=== PATIENT | female | born 1975 | race African-American/Black ===

== ENCOUNTER 2016-12-03 03:10 | Inpatient (IN) | payer BC ==
[~2016-12-03] VITALS: Ht 160 cm; Wt 75.3 kg
[~2016-12-03 03:10] MED LIST: BUTA1CAP29 PO
[2016-12-03] MEDS ORDERED: ONDANSETRON PF 4 MG/2 ML VIAL. IV PRN (04:30)
[2016-12-03] MEDS ORDERED: MORPHINE SULFATE 2 MG/ML DISP.SYRIN. IV PRN (04:30)
[2016-12-03] MEDS ORDERED: ACETAMINOPHEN 325 MG TABLET. PO PRN (04:30)
[2016-12-03 04:45] VITALS: BP 124/82
[2016-12-03] MEDS ORDERED: METO50TA2 PO (04:51)
[2016-12-03] MEDS ORDERED: OXYC-323 PO (04:51)
[2016-12-03] MEDS ORDERED: PNV1TABL25 PO (04:51)
[2016-12-03] MEDS ORDERED: OMEP40CA5 PO (04:51)
[2016-12-03] MEDS ORDERED: SUMA50TA3 PO (04:51)
[2016-12-03 07:05] LABS: BASO % 1 % (0-3); EOS % 2 % (0-3); HEMOGLOBIN 11.5 g/dL (12.0-15.5); LYMPH % 43 % (24-48); MEAN CORPUSCULAR HEMOGLOBIN 26 pg (25-35); MEAN CORPUSCULAR HGB CONC 32 g/dL (31-37); MEAN CORPUSCULAR VOLUME 82 fL (79-100); MONO % 8 % (0-9); NEUT % 46 % (31-73); PLATELET COUNT 205 x10^3/uL (140-400); RED BLOOD COUNT 4.41 x10^6/uL (3.50-5.40); WHITE BLOOD COUNT 4.6 x10^3/uL (4.0-11.0)
[2016-12-03 07:20] LABS: INR 1.1 (0.8-1.1); PROTHROMBIN TIME PATIENT 13.8 SEC (11.7-14.0)
[2016-12-03 07:25] LABS: ALBUMIN 3.3 g/dL (3.4-5.0); ALBUMIN/GLOBULIN RATIO 0.8 (1.0-1.7); CALCIUM 8.8 mg/dL (8.5-10.1); GFR 74.3; POTASSIUM 3.8 mmol/L (3.5-5.1); TOTAL BILIRUBIN 0.6 mg/dL (0.2-1.0); TOTAL PROTEIN 7.3 g/dL (6.4-8.2)
[2016-12-03 07:36] VITALS: BP 137/93
[2016-12-03 10:59] VITALS: BP 128/90
[2016-12-03] MEDS ORDERED: oxyCODONE/APAP 5/325 1 TAB TABLET PO PRN (11:45)
[2016-12-03] MEDS: PANTOPRAZOLE 40 MG TABLET.DR. PO SCH (12:10)
[2016-12-03] MEDS ORDERED: GADOBUTROL 7.5 MMOL/7.5 ML VIAL IV ONE (12:30)
[2016-12-03] MEDS ORDERED: hydrALAZINE 20 MG/ML VIAL. IVP PRN (13:15)
[2016-12-03] MEDS ORDERED: IBUPROFEN 800 MG TABLET. PO PRN (13:15)
--- NOTE | 2016-12-03 13:21 | PDOC1 ---
History and Physical Date of Admission Date of Admission 12/03/16 Identification/Chief Complaint Chief Complaint headache Problems: Source Source: Chart review, Patient History of Present Illness History of Present Illness 41yoF, had C section 3 weeks ago, was sent from [facility] for headache. She has had migraine for a long time, currently not taking sumatriptan since and . she started to have headache since yesterday, on the top of head, radiating to occipital, with nausea, sob, constant, 10/10. She isnot sure if noise and light bothers her. Her usual migraine usually is left side and pulsating. she went to [facility] Yesterday, CT head neg. sent here for MRI. now slightly better. no fever, chills, cough, vomiting , neurologic deficit. Past Medical History Cardiovascular: HTN Past Surgical History Past Surgical History: Family History Family History: Hypertension Social History Smoke: No ALCOHOL: none Drugs: None Current Medications Current Medications Current Medications Medications (Trade) Dose Ordered Sig/Vernell Start Time Stop Time Status Last Admin Dose Admin Acetaminophen (Tylenol) 650 mg PRN Q6HRS PRN 12/03/16 04:30 12/03/16 05:12 650 MG Gadobutrol (Gadavist) 7.5 mmol 1X ONCE 12/03/16 12:30 12/03/16 12:31 DC 12/03/16 12:43 7.5 MMOL Metoprolol Tartrate (Lopressor) 50 mg HS 12/03/16 21:00 Morphine Sulfate 2 mg PRN Q4HRS PRN 12/03/16 04:30 Ondansetron HCl (Zofran) 4 mg PRN Q6HRS PRN 12/03/16 04:30 Oxycodone/ Acetaminophen (Percocet 5/325) 1 tab PRN Q6HRS PRN 12/03/16 11:45 12/03/16 12:11 1 TAB Pantoprazole Sodium (Protonix) 40 mg DAILYAC 12/03/16 07:30 12/03/16 12:10 40 MG Multivit/ Folic Acid/Iron (Multivitamin ) 1 tab DAILY 12/03/16 12:30 Allergies Allergies Allergies Coded Allergies Type Severity Reaction Last Updated Verified Sulfa (Sulfonamide Antibiotics) Allergy Intermediate hives 02/15/14 Yes sulfamethoxazole Allergy Intermediate Hives 12/03/16 Yes trimethoprim Allergy Intermediate Hives 12/03/16 Yes gluten Adverse Reaction Unknown Nausea 12/03/16 Yes ROS Review of System CONSTITUTIONAL: No fever or chills EYES: No recent changes SKIN: No rash or itching CARDIOVASCULAR: No chest pain, syncope, palpitations, or edema RESPIRATORY: No SOB or cough GASTROINTESTINAL: No nausea, vomiting or abdominal pain NEUROLOGICAL: No headaches or weakness ENDOCRINE: No cold or heat intolerance GENITOURINARY: No urgency or frequency of urination MUSCULOSKELETAL: No back pain or joint pain LYMPHATICS: No enlarged lymph nodes PSYCHIATRIC: No anxiety or depression Physical Exam Physical Exam GEN.: No apparent distress. Alert and oriented. HEENT: Head is normocephalic, atraumatic NECK: Supple. LUNGS: Clear to auscultation. HEART: RRR, S1, S2 present. Peripheral pulses intact ABDOMEN: Soft, nontender. Positive bowel sounds. EXTREMITIES: Without any cyanosis. NEUROLOGIC: Normal speech, normal tone PSYCHIATRIC: Normal affect, normal mood. SKIN: No ulcerations Vitals Vitals Vital Signs Date Time Temp Pulse Resp B/P (MAP) Pulse Ox O2 Delivery O2 Flow Rate FiO2 12/03/16 12:11 18 97 Room Air 12/03/16 10:59 97.9 81 128/90 (103) 97.9 Labs Labs Laboratory Tests Test 12/03/16 06:55 White Blood Count 4.6 x10^3/uL (4.0-11.0) Red Blood Count 4.41 x10^6/uL (3.50-5.40) Hemoglobin 11.5 g/dL (12.0-15.5) Hematocrit 36.0 % (36.0-47.0) Mean Corpuscular Volume 82 fL (79-100) Mean Corpuscular Hemoglobin 26 pg (25-35) Mean Corpuscular Hemoglobin Concent 32 g/dL (31-37) Red Cell Distribution Width 17.0 % (11.5-14.5) Platelet Count 205 x10^3/uL (140-400) Neutrophils (%) (Auto) 46 % (31-73) Lymphocytes (%) (Auto) 43 % (24-48) Monocytes (%) (Auto) 8 % (0-9) Eosinophils (%) (Auto) 2 % (0-3) Basophils (%) (Auto) 1 % (0-3) Neutrophils # (Auto) 2.1 x10^3uL (1.8-7.7) Lymphocytes # (Auto) 2.0 x10^3/uL (1.0-4.8) Monocytes # (Auto) 0.4 x10^3/uL (0.0-1.1) Eosinophils # (Auto) 0.1 x10^3/uL (0.0-0.7) Basophils # (Auto) 0.0 x10^3/uL (0.0-0.2) Prothrombin Time 13.8 SEC (11.7-14.0) Prothromb Time International Ratio 1.1 (0.8-1.1) Sodium Level 142 mmol/L (136-145) Potassium Level 3.8 mmol/L (3.5-5.1) Chloride Level 108 mmol/L (98-107) Carbon Dioxide Level 23 mmol/L (21-32) Anion Gap 11 (6-14) Blood Urea Nitrogen 10 mg/dL (7-20) Creatinine 1.0 mg/dL (0.6-1.0) Estimated GFR (Cockcroft-Gault) 74.3 BUN/Creatinine Ratio 10 (6-20) Glucose Level 91 mg/dL (70-99) Calcium Level 8.8 mg/dL (8.5-10.1) Total Bilirubin 0.6 mg/dL (0.2-1.0) Aspartate Amino Transf (AST/SGOT) 23 U/L (15-37) Alanine Aminotransferase (ALT/SGPT) 36 U/L (14-59) Alkaline Phosphatase 76 U/L (46-116) Total Protein 7.3 g/dL (6.4-8.2) Albumin 3.3 g/dL (3.4-5.0) Albumin/Globulin Ratio 0.8 (1.0-1.7) Laboratory Tests Test 12/03/16 06:55 White Blood Count 4.6 x10^3/uL (4.0-11.0) Red Blood Count 4.41 x10^6/uL (3.50-5.40) Hemoglobin 11.5 g/dL (12.0-15.5) Hematocrit 36.0 % (36.0-47.0) Mean Corpuscular Volume 82 fL (79-100) Mean Corpuscular Hemoglobin 26 pg (25-35) Mean Corpuscular Hemoglobin Concent 32 g/dL (31-37) Red Cell Distribution Width 17.0 % (11.5-14.5) Platelet Count 205 x10^3/uL (140-400) Neutrophils (%) (Auto) 46 % (31-73) Lymphocytes (%) (Auto) 43 % (24-48) Monocytes (%) (Auto) 8 % (0-9) Eosinophils (%) (Auto) 2 % (0-3) Basophils (%) (Auto) 1 % (0-3) Neutrophils # (Auto) 2.1 x10^3uL (1.8-7.7) Lymphocytes # (Auto) 2.0 x10^3/uL (1.0-4.8) Monocytes # (Auto) 0.4 x10^3/uL (0.0-1.1) Eosinophils # (Auto) 0.1 x10^3/uL (0.0-0.7) Basophils # (Auto) 0.0 x10^3/uL (0.0-0.2) Prothrombin Time 13.8 SEC (11.7-14.0) Prothromb Time International Ratio 1.1 (0.8-1.1) Sodium Level 142 mmol/L (136-145) Potassium Level 3.8 mmol/L (3.5-5.1) Chloride Level 108 mmol/L (98-107) Carbon Dioxide Level 23 mmol/L (21-32) Anion Gap 11 (6-14) Blood Urea Nitrogen 10 mg/dL (7-20) Creatinine 1.0 mg/dL (0.6-1.0) Estimated GFR (Cockcroft-Gault) 74.3 BUN/Creatinine Ratio 10 (6-20) Glucose Level 91 mg/dL (70-99) Calcium Level 8.8 mg/dL (8.5-10.1) Total Bilirubin 0.6 mg/dL (0.2-1.0) Aspartate Amino Transf (AST/SGOT) 23 U/L (15-37) Alanine Aminotransferase (ALT/SGPT) 36 U/L (14-59) Alkaline Phosphatase 76 U/L (46-116) Total Protein 7.3 g/dL (6.4-8.2) Albumin 3.3 g/dL (3.4-5.0) Albumin/Globulin Ratio 0.8 (1.0-1.7) VTE Prophylaxis Ordered VTE Prophylaxis Devices: Yes VTE Pharmacological Prophylaxi: Yes Assessment/Plan Assessment/Plan intractable headache, 2/2 migraine flare likely htn recent plan: neuro consult MRI venogram to rule out cerebral venous thrombosis, less likely tho cont home meds NSAIDS prn percocet prn dvt ppx DUKE MARLOW MD December 03, 2016 13:21
--- NOTE | 2016-12-03 13:29 | PDOC2 ---
NEUROLOGY CONSULT Date of Admission Date of Admission DATE: 12/03/16 TIME: 13:17 Reason for Consult Reason for Consult: IMPRESSION: Severe headaches x 2 days. Chronic migraine headache. HTN HLD. Breast feeding her current. RECOMMENDATIONS/PLAN: Pain control. No narcotics due to her breast feeding status. Keep good hydration. FU MRI reports. MRA/MRV maybe needed if not improve. Treat medical diseases. HISTORY OF THE PRESENT ILLNESS: 41-Y-old AA female patient with Hx of chronic migraine headache for about 20 years. She stated her headaches were not severe maybe moderate headache 2 times a month. 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 However, she developed severe headaches this time for about 2 days and she stated her headaches were worse then the headaches she had before. No fever, chills, MS changes, vomiting, diplopia, decreased vision, numbness or weakness. PAST MEDICAL HISTORY: Please see above. PAST SURGERY HISTORY: Appendectomy . ALLERGY: Reviewed. MEDICATIONS: Refer to [facility] FAMILY HISTORY: HTN SOCIAL HISTORY: Lives at home. Denies current substance and illicit drug use. REVIEW OF SYSTEMS: Constitutional: No malnutrition, weight loss, cachexia. Head: No traumatic brain or head injury. Skin: No edema, or rash. Ear: No infection. Eyes: No vision loss or color blindness. Nose: No bleeding or purulent discharges. Hearing: No hearing decrease. Neck: No injury. Breast: No history of cancer, masses,or discharges. Cardiac: HTN, HLD. Pulmonary: No COPD. GI: No GI ulcer, GI bleeding. Urinary/genital: No dysuria, incontinence, urinary retention. Endocrinologic: No cousin face, craniofacial dysmorphism, polydactyly, goiter. Skeletomuscular: No muscular atrophy, deformity. Neurological: see HP. Psychiatric: Denies drug use/abuse. Otherwise, not [id number] review of systems. PHYSICAL EXAMINATION: General appearance is in no acute distress. HEENT: Normocephalic and nontraumatic. Eyes, nose, ears, and throat are unremarkable. Neck is supple. No lymphadenopathy. No bruits are heard over the carotid artery. No crepitus. Cardiovascular: S1, S2, regular rate and rhythm. Pulmonary: Clear to auscultation bilaterally. Abdomen: Bowel sounds are positive. Abdomen is soft, nontender, and nondistended. Extremities: No rash, lesions, or edema. No restriction of range of motion NEUROLOGICAL EXAMINATION: Alert Oriented to time, place and person. PERRL. EOMI. CN: no focal findings. Muscle tone: within normal. Muscle strength: 5 DTR: 2 Plantar reflex: Flexor response bilaterally Gait: not examined in bed. Sensory exam: no abnormal findings. No cerebellar signs elicited. F-T-N test accurate. Current Medications Current Medications Current Medications Morphine Sulfate 2 mg PRN Q4HRS PRN IV PAIN; Start 12/03/16 at 04:30 Acetaminophen (Tylenol) 650 mg PRN Q6HRS PRN PO MILD PAIN / TEMP Last administered on 12/03/16 05:12; Start 12/03/16 at 04:30 Ondansetron HCl (Zofran) 4 mg PRN Q6HRS PRN IV NAUSEA/VOMITING; Start 12/03/16 at 04:30 Metoprolol Tartrate (Lopressor) 50 mg HS PO ; Start 12/03/16 at 21:00 Oxycodone/ Acetaminophen (Percocet 5/325) 1 tab PRN Q6HRS PRN PO PAIN Last administered on 12/03/16 12:11; Start 12/03/16 at 11:45 Pantoprazole Sodium (Protonix) 40 mg DAILYAC PO Last administered on 12/03/16 12:10; Start 12/03/16 at 07:30 Multivit/ Folic Acid/Iron (Multivitamin ) 1 tab DAILY PO ; Start 12/03/16 at 12:30 Gadobutrol (Gadavist) 7.5 mmol 1X ONCE IV Last administered on 12/03/16 12:43 ; Start 12/03/16 at 12:30; Stop 12/03/16 at 12:31; Status DC Active Scripts Active Reported Percocet 5-325 Mg Tablet (Oxycodone/Acetaminophen) 1 Each Tablet 1-2 Tab PO Q4- 6HRS Tablet (Pnv Cmb#95/Ferrous Fumarate/Fa) 1 Each Tablet 1 Tab PO DAILY Metoprolol Tartrate 50 Mg Tablet 1 Tab PO HS Omeprazole 40 Mg Capsule.dr 1 Cap PO DAILY Imitrex (Sumatriptan Succinate) 50 Mg Tablet 1 Tab PO UD Allergies Allergies: Coded Allergies: Sulfa (Sulfonamide Antibiotics) (Verified Allergy, Intermediate, hives, 02/15/14) sulfamethoxazole (Verified Allergy, Intermediate, Hives, 12/03/16) trimethoprim (Verified Allergy, Intermediate, Hives, 12/03/16) gluten (Verified Adverse Reaction, Unknown, Nausea, 12/03/16) Vitals VITALS Vital Signs Date Time Temp Pulse Resp B/P (MAP) Pulse Ox O2 Delivery O2 Flow Rate FiO2 12/03/16 12:11 18 97 Room Air 12/03/16 10:59 97.9 81 128/90 (103) 97.9 Labs Labs Laboratory Tests Test 12/03/16 06:55 White Blood Count 4.6 x10^3/uL (4.0-11.0) Red Blood Count 4.41 x10^6/uL (3.50-5.40) Hemoglobin 11.5 g/dL (12.0-15.5) Hematocrit 36.0 % (36.0-47.0) Mean Corpuscular Volume 82 fL (79-100) Mean Corpuscular Hemoglobin 26 pg (25-35) Mean Corpuscular Hemoglobin Concent 32 g/dL (31-37) Red Cell Distribution Width 17.0 % (11.5-14.5) Platelet Count 205 x10^3/uL (140-400) Neutrophils (%) (Auto) 46 % (31-73) Lymphocytes (%) (Auto) 43 % (24-48) Monocytes (%) (Auto) 8 % (0-9) Eosinophils (%) (Auto) 2 % (0-3) Basophils (%) (Auto) 1 % (0-3) Neutrophils # (Auto) 2.1 x10^3uL (1.8-7.7) Lymphocytes # (Auto) 2.0 x10^3/uL (1.0-4.8) Monocytes # (Auto) 0.4 x10^3/uL (0.0-1.1) Eosinophils # (Auto) 0.1 x10^3/uL (0.0-0.7) Basophils # (Auto) 0.0 x10^3/uL (0.0-0.2) Prothrombin Time 13.8 SEC (11.7-14.0) Prothromb Time International Ratio 1.1 (0.8-1.1) Sodium Level 142 mmol/L (136-145) Potassium Level 3.8 mmol/L (3.5-5.1) Chloride Level 108 mmol/L (98-107) Carbon Dioxide Level 23 mmol/L (21-32) Anion Gap 11 (6-14) Blood Urea Nitrogen 10 mg/dL (7-20) Creatinine 1.0 mg/dL (0.6-1.0) Estimated GFR (Cockcroft-Gault) 74.3 BUN/Creatinine Ratio 10 (6-20) Glucose Level 91 mg/dL (70-99) Calcium Level 8.8 mg/dL (8.5-10.1) Total Bilirubin 0.6 mg/dL (0.2-1.0) Aspartate Amino Transf (AST/SGOT) 23 U/L (15-37) Alanine Aminotransferase (ALT/SGPT) 36 U/L (14-59) Alkaline Phosphatase 76 U/L (46-116) Total Protein 7.3 g/dL (6.4-8.2) Albumin 3.3 g/dL (3.4-5.0) Albumin/Globulin Ratio 0.8 (1.0-1.7) Laboratory Tests Test 12/03/16 06:55 White Blood Count 4.6 x10^3/uL (4.0-11.0) Red Blood Count 4.41 x10^6/uL (3.50-5.40) Hemoglobin 11.5 g/dL (12.0-15.5) Hematocrit 36.0 % (36.0-47.0) Mean Corpuscular Volume 82 fL (79-100) Mean Corpuscular Hemoglobin 26 pg (25-35) Mean Corpuscular Hemoglobin Concent 32 g/dL (31-37) Red Cell Distribution Width 17.0 % (11.5-14.5) Platelet Count 205 x10^3/uL (140-400) Neutrophils (%) (Auto) 46 % (31-73) Lymphocytes (%) (Auto) 43 % (24-48) Monocytes (%) (Auto) 8 % (0-9) Eosinophils (%) (Auto) 2 % (0-3) Basophils (%) (Auto) 1 % (0-3) Neutrophils # (Auto) 2.1 x10^3uL (1.8-7.7) Lymphocytes # (Auto) 2.0 x10^3/uL (1.0-4.8) Monocytes # (Auto) 0.4 x10^3/uL (0.0-1.1) Eosinophils # (Auto) 0.1 x10^3/uL (0.0-0.7) Basophils # (Auto) 0.0 x10^3/uL (0.0-0.2) Prothrombin Time 13.8 SEC (11.7-14.0) Prothromb Time International Ratio 1.1 (0.8-1.1) Sodium Level 142 mmol/L (136-145) Potassium Level 3.8 mmol/L (3.5-5.1) Chloride Level 108 mmol/L (98-107) Carbon Dioxide Level 23 mmol/L (21-32) Anion Gap 11 (6-14) Blood Urea Nitrogen 10 mg/dL (7-20) Creatinine 1.0 mg/dL (0.6-1.0) Estimated GFR (Cockcroft-Gault) 74.3 BUN/Creatinine Ratio 10 (6-20) Glucose Level 91 mg/dL (70-99) Calcium Level 8.8 mg/dL (8.5-10.1) Total Bilirubin 0.6 mg/dL (0.2-1.0) Aspartate Amino Transf (AST/SGOT) 23 U/L (15-37) Alanine Aminotransferase (ALT/SGPT) 36 U/L (14-59) Alkaline Phosphatase 76 U/L (46-116) Total Protein 7.3 g/dL (6.4-8.2) Albumin 3.3 g/dL (3.4-5.0) Albumin/Globulin Ratio 0.8 (1.0-1.7) ADRIAN REHMAN MD December 03, 2016 13:29
--- NOTE | 2016-12-03 14:22 | RAD ---
MR venogram Technique: Time of flight MR venogram was performed in both the sagittal and coronal planes. Maximum intensity pixel projections were obtained and presented in a rotating format. FINDINGS: No regions of abnormal signal are seen on the limited T1-weighted images of the brain. No extra-axial fluid collections are identified. No midline shift or mass effect is seen. Ventricular size is within normal limits. Midline structures have a normal anatomic configuration. Pituitary gland and infundibulum are unremarkable. Basal cisterns are patent. Flow voids are preserved at the skull base. Cerebellum and posterior fossa structures are unremarkable. Globes and orbits are within normal limits. Paranasal sinuses and mastoid air cells are clear. There is no evidence of dural venous sinus thrombosis. The deep cerebral veins are within normal limits. No cortical vein thrombosis is identified. IMPRESSION: Unremarkable MR venogram of the head. No evidence of dural venous sinus thrombosis. Electronically signed by: Serjio Mcarthur MD (12/03/2016 2:19 PM)
[2016-12-03 15:22] VITALS: BP 121/88
[2016-12-03] MEDS: PRENATAL MULTIVITAMIN TABLET. PO SCH (15:27)
[2016-12-03] MEDS: ENOXAPARIN 40 MG/0.4 ML SYRINGE. SQ SCH (15:28)
[2016-12-03] MEDS: HYDROmorphone 2 MG/ML VIAL IV PRN ×2 (17:16→21:18)
[2016-12-03 19:55] VITALS: BP 139/95
[2016-12-03] MEDS ORDERED: METOPROLOL TART IMMED RELEASE 50 MG TABLET. PO SCH (21:00)
[2016-12-03 23:34] VITALS: BP 121/91
[2016-12-04 03:31] VITALS: BP 131/88
[2016-12-04 07:00] VITALS: BP 115/79
[2016-12-04] MEDS: PANTOPRAZOLE 40 MG TABLET.DR. PO SCH (08:43)
[2016-12-04] MEDS: PRENATAL MULTIVITAMIN TABLET. PO SCH (08:43)
[2016-12-04] MEDS: HYDROmorphone 2 MG/ML VIAL IV PRN (10:12)
[2016-12-04 11:00] VITALS: BP 113/86
--- NOTE | 2016-12-04 12:22 | PDOC ---
PROGRESS NOTES Assessment Assessment Severe headache, improved. Chronic migraine headache. HTN HLD. Breast feeding her currently. RECOMMENDATIONS/PLAN: Pain control. No narcotics due to her breast feeding status. Keep good hydration. Treat medical diseases. MRV: Normal. HISTORY OF THE PRESENT ILLNESS: 41-Y-old AA female patient with Hx of chronic migraine headache for about 20 years. She stated her headaches were not severe maybe moderate headache 2 times a month. 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 However, she developed severe headaches this time for about 2 days and she stated her headaches were worse then the headaches she had before. No fever, chills, MS changes, vomiting, diplopia, decreased vision, numbness or weakness. She stated on 12/04 that her headaches were much improved and she rated her headaches 2/10. PAST MEDICAL HISTORY: Please see above. PAST SURGERY HISTORY: Appendectomy . ALLERGY: Reviewed. MEDICATIONS: Refer to [facility] FAMILY HISTORY: HTN SOCIAL HISTORY: Lives at home. Denies current substance and illicit drug use. REVIEW OF SYSTEMS: Constitutional: No malnutrition, weight loss, cachexia. Head: No traumatic brain or head injury. Skin: No edema, or rash. Ear: No infection. Eyes: No vision loss or color blindness. Nose: No bleeding or purulent discharges. Hearing: No hearing decrease. Neck: No injury. Breast: No history of cancer, masses,or discharges. Cardiac: HTN, HLD. Pulmonary: No COPD. GI: No GI ulcer, GI bleeding. Urinary/genital: No dysuria, incontinence, urinary retention. Endocrinologic: No cousin face, craniofacial dysmorphism, polydactyly, goiter. Skeletomuscular: No muscular atrophy, deformity. Neurological: see HP. Psychiatric: Denies drug use/abuse. Otherwise, not [id number] review of systems. PHYSICAL EXAMINATION: General appearance is in no acute distress. HEENT: Normocephalic and nontraumatic. Eyes, nose, ears, and throat are unremarkable. Neck is supple. No lymphadenopathy. No bruits are heard over the carotid artery. No crepitus. Cardiovascular: S1, S2, regular rate and rhythm. Pulmonary: Clear to auscultation bilaterally. Abdomen: Bowel sounds are positive. Abdomen is soft, nontender, and nondistended. Extremities: No rash, lesions, or edema. No restriction of range of motion NEUROLOGICAL EXAMINATION: Alert Oriented to time, place and person. PERRL. EOMI. CN: no focal findings. Muscle tone: within normal. Muscle strength: 5 DTR: 2 Plantar reflex: Flexor response bilaterally Gait: not examined in bed. Sensory exam: no abnormal findings. No cerebellar signs elicited. F-T-N test accurate. Objective Objective Vital Signs Date Time Temp Pulse Resp B/P (MAP) Pulse Ox O2 Delivery O2 Flow Rate FiO2 12/04/16 11:24 97 Room Air 12/04/16 11:00 97.9 76 18 113/86 (95) 97.9 Intake and Output 12/04/16 07:00 Intake Total 2090 ml Output Total 400 ml Balance 1690 ml Intake Oral 2090 ml Output Urine Total 400 ml # Voids 3 Vitals Signs Vitals VS - Last 72 Hours, by Label Date Time Temp Pulse Resp B/P (MAP) Pulse Ox O2 Delivery O2 Flow Rate FiO2 12/04/16 11:24 97 Room Air 12/04/16 11:00 97.9 76 18 113/86 (95) 97 Room Air 97.9 12/04/16 10:12 98 Room Air 12/04/16 08:00 Room Air 12/04/16 07:00 97.7 59 18 115/79 (91) 98 Room Air 97.7 12/04/16 03:31 98.3 73 18 131/88 (102) 98 Room Air 98.3 12/03/16 23:34 98.6 63 18 121/91 (101) 97 Room Air 98.6 12/03/16 21:48 18 12/03/16 21:18 20 97 Room Air 12/03/16 20:30 82 139/95 12/03/16 20:00 Room Air 12/03/16 19:55 97.9 82 18 139/95 (110) 96 Room Air 97.9 12/03/16 17:16 19 97 Room Air 12/03/16 15:22 98.1 78 18 121/88 (99) 97 Room Air 98.1 12/03/16 13:11 17 97 Room Air 12/03/16 12:11 18 97 Room Air 12/03/16 10:59 97.9 81 18 128/90 (103) 97 Room Air 97.9 12/03/16 08:00 Room Air 12/03/16 07:36 98.6 78 18 137/93 (108) 99 Room Air 98.6 Medication Medications Current Medications Enoxaparin Sodium (Lovenox 40mg Syringe) 40 mg Q24H SQ Last administered on 15:28; Start 12/03/16 at 13:15 Gadobutrol (Gadavist) 7.5 mmol 1X ONCE IV Last administered on 12/03/16 12:43 ; Start 12/03/16 at 12:30; Stop 12/03/16 at 12:31; Status DC Hydralazine HCl (Apresoline) 10 mg PRN Q4HRS PRN IVP ELEVATED BP, SEE COMMENTS ; Start 12/03/16 at 13:15 Hydromorphone HCl (Dilaudid) 1 mg PRN Q4HRS PRN IV PAIN Last administered on 10:12; Start 12/03/16 at 17:15 Ibuprofen (Motrin) 800 mg PRN Q6HRS PRN PO INFLAMMATION Last administered on 11:22; Start 12/03/16 at 13:15 Metoprolol Tartrate (Lopressor) 50 mg HS PO Last administered on 12/03/16 20: 30; Start 12/03/16 at 21:00 Multivit/ Folic Acid/Iron (Multivitamin ) 1 tab DAILY PO Last administered on 12/04/16 08:43; Start 12/03/16 at 12:30 Comment Review of Relevant I have reviewed the following items mily (where applicable) has been applied. ADRIAN REHMAN MD December 04, 2016 12:22
[2016-12-04] MEDS ORDERED: HYDROmorphone 2 MG TABLET PO PRN (12:30)
[2016-12-04] MEDS ORDERED: HYDR2TAB13 PO (12:33)
[2016-12-04] MEDS: ENOXAPARIN 40 MG/0.4 ML SYRINGE. SQ SCH (13:15)
--- NOTE | 2016-12-04 14:03 | PDOC3 ---
Discharge Summary [facility] Date of Admission: December 03, 2016 Discharge Date: December 04, 2016 Admitting Diagnosis intractable headache, 2/2 migraine flare likely htn recent right breast pain, 2/2 milk accumulation likely Problems: CONSULTS neuro Brief Hospital Course 41yoF, had C section 3 weeks ago, was sent from [facility] for headache. She has had migraine for a long time, currently not taking sumatriptan since and . she started to have headache since yesterday, on the top of head, radiating to occipital, with nausea, sob, constant, 10/10. She isnot sure if noise and light bothers her. Her usual migraine usually is left side and pulsating. she went to [facility] Yesterday, CT head neg. sent here for MRI. now slightly better. no fever, chills, cough, vomiting , neurologic deficit. MRI neg. pt's headache is better with dilaudid. She developed right breast pain. Right breast is using the mild pump, no erythema, fever, OB nurse consulted, recommend NSAIDS, and cont high milk pump set up dc home with dilaudid 2mg 10pills. dc time 35min GEN.: No apparent distress. Alert and oriented. HEENT: Head is normocephalic, atraumatic NECK: Supple. LUNGS: Clear to auscultation. HEART: RRR, S1, S2 present. Peripheral pulses intact ABDOMEN: Soft, nontender. Positive bowel sounds. EXTREMITIES: Without any cyanosis. NEUROLOGIC: Normal speech, normal tone PSYCHIATRIC: Normal affect, normal mood. SKIN: No ulcerations Problems: Disposition home CONDITION AT DISCHARGE: Improved Diet regular Scheduled Metoprolol Tartrate (Metoprolol Tartrate), 1 TAB PO HS, (Reported) Omeprazole (Omeprazole), 1 CAP PO DAILY, (Reported) Oxycodone/Apap 5-325 (Percocet 5-325 Mg Tablet), 1-2 TAB PO Q4-6HRS, (Reported) Pnv Cmb#95/Ferrous Fumarate/Fa ( Tablet), 1 TAB PO DAILY, (Reported) Scheduled PRN Hydromorphone Hcl (Dilaudid), 2 MG PO PRN Q4HRS PRN for PAIN Discontinued Medications Sumatriptan Succinate (Imitrex), 1 TAB PO UD, (Reported) Follow Up pcp in 2 weeks DUKE MARLOW MD December 04, 2016 14:03
== END 2016-12-04 15:15 | disposition home or self-care (01) | DRG 103 ==
LOC: 6 SOUTH 04:01
PROVIDERS: ADMIT Internal Medicine; ATTEND Internal Medicine
DX: G43.909 Migraine, unspecified, not intractable, without status migrainosus (principal); E78.5 Hyperlipidemia, unspecified; I10 Essential (primary) hypertension; N64.4 Mastodynia; Z82.49 Family history of ischemic heart disease and other diseases of the circulatory system; Z88.2 Allergy status to sulfonamides; Z88.8 Allergy status to other drugs, medicaments and biological substances; Z90.49 Acquired absence of other specified parts of digestive tract
CPT/HCPCS: 36415; 80053; 85027; 85610; 85651; J1170; J1650; A9585

== ENCOUNTER 2017-11-27 18:36 | Emergency (ER) | payer BC ==
[2017-11-27] MEDS: ASPIRIN CHEWABLE 81 MG TABLET. PO (19:15)
[2017-11-27 19:21] LABS: ADD MAN DIFF? NO
[2017-11-27] MEDS: ACETAMINOPHEN 500 MG TABLET PO (19:22)
[2017-11-27 19:26] LABS: BASO % 1 % (0-3); EOS # 0.1 x10^3/uL (0.0-0.7); EOS % 2 % (0-3); HEMATOCRIT 37.4 % (36.0-47.0); HEMOGLOBIN 12.1 g/dL (12.0-15.5); LYMPH # 2.7 x10^3/uL (1.0-4.8); LYMPH % 35 % (24-48); MEAN CORPUSCULAR HEMOGLOBIN 26 pg (25-35); MEAN CORPUSCULAR HGB CONC 32 g/dL (31-37); MEAN CORPUSCULAR VOLUME 82 fL (79-100); MONO # 0.7 x10^3/uL (0.0-1.1); MONO % 9 % (0-9); NEUT # 4.2 x10^3uL (1.8-7.7); NEUT % 54 % (31-73); PLATELET COUNT 191 x10^3/uL (140-400); RED BLOOD COUNT 4.58 x10^6/uL (3.50-5.40); WHITE BLOOD COUNT 7.8 x10^3/uL (4.0-11.0)
[2017-11-27 19:32] LABS: ANION GAP 7 (6-14); BLOOD UREA NITROGEN 13 mg/dL (7-20); BUN/CREATININE RATIO 13 (6-20); CALCIUM 9.2 mg/dL (8.5-10.1); CARBON DIOXIDE 26 mmol/L (21-32); CHLORIDE 105 mmol/L (98-107); GFR 73.9; GLUCOSE 80 mg/dL (70-99); POTASSIUM 3.7 mmol/L (3.5-5.1); SODIUM 138 mmol/L (136-145)
[2017-11-27 19:38] LABS: ALBUMIN 3.8 g/dL (3.4-5.0); ALBUMIN/GLOBULIN RATIO 0.9 (1.0-1.7); ALK PHOS 58 U/L (46-116); ALT (SGPT) 19 U/L (14-59); AST (SGOT) 15 U/L (15-37); TOTAL BILIRUBIN 0.5 mg/dL (0.2-1.0); TOTAL PROTEIN 8.2 g/dL (6.4-8.2)
[2017-11-27 19:40] LABS: TROPONINI 0.042 ng/mL (0.000-0.055)
[2017-11-27 19:40] LABS: PROTHROMBIN TIME PATIENT 13.1 SEC (11.7-14.0)
[2017-11-27 19:45] LABS: D-DIMER 0.72 ug/mlFEU (0.00-0.50)
[2017-11-27] MEDS: IOHEXOL 300 MG/ML 100ML VIAL. IV (20:30)
[2017-11-27] MEDS ORDERED: CONTRAST GIVEN MC (20:30)
[2017-11-27] MEDS: KETOROLAC 15 MG/ML VIAL. IV (21:32)
[2017-11-27 23:05] LABS: TROPONINI 0.045 ng/mL (0.000-0.055)
== END 2017-11-27 23:24 | disposition home or self-care (01) ==
LOC: ER 18:36
DX: R07.89 Other chest pain (principal); I10 Essential (primary) hypertension; Z87.442 Personal history of urinary calculi; Z88.2 Allergy status to sulfonamides; Z88.1 Allergy status to other antibiotic agents; Z88.8 Allergy status to other drugs, medicaments and biological substances
CPT/HCPCS: 36415; 71045; 71275; 80053; 84484; 84702; 85025; 85379; 85610; 93005; 93970; 96374; 99285-25; J1885; Q9967

== ENCOUNTER 2018-04-21 16:50 | Observation (INO) | payer BC ==
[~2018-04-21] VITALS: Ht 160 cm; Wt 77.1 kg
[~2018-04-21 16:50] MED LIST changes: +HYDR-2758 PO; +HYDR2TAB31 PO; +IBUP-1060 PO; +METO50TA6 PO; +OMEP40CA5 PO; +OXYC-323 PO; +PNV1TABL25 PO; +SUMA50TA3 PO
[2018-04-21] MEDS ORDERED: ASPIRIN CHEWABLE 81 MG TABLET. PO ONE ×2 (17:15→19:30)
[2018-04-21] MEDS ORDERED: NITROGLYCERIN OINT 1 GM PACKET. TP ONE (17:15)
--- NOTE | 2018-04-21 17:18 | PHYS DOC ---
Past Medical History Past Medical History: Hypertension Past Surgical History: Appendectomy, , Tubal ligation Additional Past Surgical Histo: cyst off ovary, abdominal plasty Smoking: Cigarettes (The patient is a nonsmoker.) Alcohol Use: None Drug Use: None Adult General Chief Complaint Chief Complaint: CHEST PAIN HPI HPI Patient is a 42-year-old female presents to the emergency department for evaluation. She awoke this morning with some chest discomfort, radiating towards her left back area. She states the pain was described as a pressure. She states that throughout the day she felt tired and somewhat short of breath. She also developed a nonproductive cough today. The pain is worsened with deep breathing. She has not had any definite worsening of her pain with palpation of her chest, movement, or exertion. She has felt generally fatigued for the past few weeks, but has not had any nausea or vomiting. She has had some lightheadedness today. She has a prior history of kidney stones and initially at the onset of her pain in her back but she might be passing a kidney stone but has not had any symptoms related to such today. Other than the stated above, there are no alleviating, or exacerbating factors to the patient's symptoms. She has no family history of premature onset coronary artery disease. She has a history of hypertension and hyperlipidemia. She is not taking medication for cholesterol. Assuming a normal troponin, the patient's HEART score would be 2. The patient does take oral contraceptives, to help regulate her menstrual cycles post tubal ligation. Review of Systems Review of Systems Constitutional: Denies fever or chills Eyes: Denies change in visual acuity, redness, or eye pain HENT: Denies nasal congestion or sore throat Respiratory: Denies productive cough. Does admit to some shortness of breath Cardiovascular: with left precordial chest pain, no palpitations GI: Denies abdominal pain, nausea, vomiting, bloody stools or diarrhea : Denies dysuria or hematuria Musculoskeletal: Denies back pain or joint pain Integument: Denies rash or skin lesions Neurologic: Denies headache, focal weakness or sensory changes Endocrine: Denies polyuria or polydipsia All other systems were reviewed and found to be within normal limits, except as documented in this note. Current Medications Current Medications Current Medications Medications (Trade) Dose Ordered Sig/Vernell Start Time Stop Time Status Last Admin Dose Admin Aspirin (Children'S Aspirin) 324 mg 1X ONCE 04/21/18 19:30 04/21/18 19:31 DC Iohexol (Omnipaque 300 Mg/ml) 75 ml 1X ONCE 04/21/18 17:30 04/21/18 17:31 DC 04/21/18 17:30 75 ML Ketorolac Tromethamine (Toradol 15mg Vial) 15 mg 1X ONCE 04/21/18 18:30 04/21/18 18:34 DC 04/21/18 19:04 15 MG Nitroglycerin (Nitro-Bid Oint) 1 inch 1X ONCE 04/21/18 17:15 04/21/18 17:20 DC 04/21/18 17:30 1 INCH Sodium Chloride 1,000 ml @ 1,000 mls/hr 1X ONCE 04/21/18 18:30 04/21/18 19:29 DC 04/21/18 19:05 1,000 MLS/HR Allergies Allergies Allergies Coded Allergies Type Severity Reaction Last Updated Verified Sulfa (Sulfonamide Antibiotics) Allergy Intermediate hives 04/21/18 Yes sulfamethoxazole Allergy Intermediate Hives 04/21/18 Yes trimethoprim Allergy Intermediate Hives 04/21/18 Yes gluten Adverse Reaction Intermediate Nausea 04/21/18 Yes Physical Exam Physical Exam PHYSICAL EXAM: CONSTITUTIONAL: Well developed, well nourished HEAD: normocephalic, atraumatic EENT: PERRL, EOMI. Conjunctivae normal color, sclerae non-icteric; moist mucous membranes. NECK: Supple, non-tender; no meningismus. LUNGS: Lungs CTA, breathing even and unlabored. Normal air movement. HEART: Regular rate and rhythm, no murmur CHEST: No deformity; non-tender ABDOMEN: The abdomen is soft, and non-tender, no masses or bruits. EXTREM: Normal ROM; no deformity, no calf tenderness. Normal pulses palpable in all extremities. There is no pedal edema. SKIN: No rash; no diaphoresis NEURO: Alert; normal speech and cognition; CN's grossly intact; strength grossly intact without focal deficit. BACK: No CVA TTP. Current Patient Data Vital Signs Vital Signs Date Time Temp Pulse Resp B/P (MAP) Pulse Ox O2 Delivery O2 Flow Rate FiO2 04/21/18 19:30 72 16 128/78 (95) 99 Room Air 04/21/18 17:00 98.1 98.1 Lab Values Laboratory Tests Test 04/21/18 17:10 04/21/18 18:15 04/21/18 18:45 White Blood Count 6.6 x10^3/uL (4.0-11.0) Red Blood Count 4.77 x10^6/uL (3.50-5.40) Hemoglobin 12.9 g/dL (12.0-15.5) Hematocrit 38.8 % (36.0-47.0) Mean Corpuscular Volume 82 fL (79-100) Mean Corpuscular Hemoglobin 27 pg (25-35) Mean Corpuscular Hemoglobin Concent 33 g/dL (31-37) Red Cell Distribution Width 15.9 % (11.5-14.5) H Platelet Count 209 x10^3/uL (140-400) Neutrophils (%) (Auto) 46 % (31-73) Lymphocytes (%) (Auto) 42 % (24-48) Monocytes (%) (Auto) 8 % (0-9) Eosinophils (%) (Auto) 3 % (0-3) Basophils (%) (Auto) 1 % (0-3) Neutrophils # (Auto) 3.1 x10^3uL (1.8-7.7) Lymphocytes # (Auto) 2.8 x10^3/uL (1.0-4.8) Monocytes # (Auto) 0.6 x10^3/uL (0.0-1.1) Eosinophils # (Auto) 0.2 x10^3/uL (0.0-0.7) Basophils # (Auto) 0.1 x10^3/uL (0.0-0.2) Sodium Level 139 mmol/L (136-145) Potassium Level 3.8 mmol/L (3.5-5.1) Chloride Level 103 mmol/L (98-107) Carbon Dioxide Level 26 mmol/L (21-32) Anion Gap 10 (6-14) Blood Urea Nitrogen 11 mg/dL (7-20) Creatinine 1.1 mg/dL (0.6-1.0) H Estimated GFR (Cockcroft-Gault) 66.2 BUN/Creatinine Ratio 10 (6-20) Glucose Level 80 mg/dL (70-99) Calcium Level 9.5 mg/dL (8.5-10.1) Total Bilirubin 0.3 mg/dL (0.2-1.0) Aspartate Amino Transferase (AST) 18 U/L (15-37) Alanine Aminotransferase (ALT) 31 U/L (14-59) Alkaline Phosphatase 52 U/L (46-116) Creatine Kinase 150 U/L (26-192) Creatine Kinase MB (Mass) < 0.5 ng/mL (0.0-3.6) Creatine Kinase MB Relative Index % (0-4) Troponin I Quantitative < 0.017 ng/mL (0.000-0.055) 0.021 ng/mL (0.000-0.055) Total Protein 8.5 g/dL (6.4-8.2) H Albumin 3.8 g/dL (3.4-5.0) Albumin/Globulin Ratio 0.8 (1.0-1.7) L Lipase 242 U/L (73-393) Urine Collection Type Unknown Urine Color Yellow Urine Clarity Cloudy Urine pH 7.0 Urine Specific [place] 1.020 Urine Protein Negative mg/dL (NEG-TRACE) Urine Glucose (UA) Negative mg/dL (NEG) Urine Ketones (Stick) Negative mg/dL (NEG) Urine Blood Negative (NEG) Urine Nitrite Negative (NEG) Urine Bilirubin Negative (NEG) Urine Urobilinogen Dipstick 1.0 mg/dL (0.2 mg/dL) Urine Leukocyte Esterase Moderate (NEG) Urine RBC 0 /HPF (0-2) Urine WBC 1-4 /HPF (0-4) Urine Squamous Epithelial Cells Many /LPF Urine Amorphous Sediment Present /HPF Urine Bacteria Moderate /HPF (0-FEW) Laboratory Tests 04/21/18 17:10 Laboratory Tests 04/21/18 17:10 EKG EKG [Normal sinus rhythm at a rate of 69 beats for minute, normal axis, normal intervals, there are no acute ischemic ST/T changes.] ECG 17:05 NSR @ 69 with normal axis, normal intervals and without ST- T wave change suggestive of ischemia 18:55 NSR @ 64 with normal axis and normal intervals with T wave inversions lead III, new compared to earlier ECG @ 17:05 Radiology/Procedures Radiology/Procedures [ER physician preliminary chest x-ray interpretation: No acute disease.] [facility] [address] [place] [address] IMAGING REPORT Signed PATIENT: FRANCIS GALLEGO ACCOUNT: [id number] : 1975 LOCATION: ER AGE: 42 SEX: F EXAM STATUS: REG ER ORD. PHYSICIAN: CHERYL RITTER MD REASON: CP, r/o PE PROCEDURE: CT ANGIOGRAPHY CHEST EXAM: CT ANGIOGRAPHY OF THE CHEST WITH AND WITHOUT INTRAVENOUS CONTRAST. HISTORY: Shortness of breath, chest pain. TECHNIQUE: Computed tomographic angiography of the chest was performed before and after the intravenous administration of 75 mL Omnipaque 300. 3-D maximum intensity projections were also performed. COMPARISON: 11/27/2017. FINDINGS: Images of the upper abdomen reveal no acute abnormality. Bone windows reveal no suspicious lesions. No pulmonary emboli are identified. There is no aortic dissection or aneurysm. Mild stranding within the anterior mediastinal fat is consistent with a thymic remnant or rebound thymic hyperplasia and is stable. There are no pathologically enlarged mediastinal or axillary lymph nodes. There is no pleural or pericardial effusion. The heart is not enlarged. A lobulated uncalcified 10 x 8 mm left upper lobe nodule on image 34 is unchanged since the prior study. A 2 mm pleural-based nodule in the left upper lobe on image 69 is stable. A 5 mm noncalcified pleural-based nodule in the right middle lobe on image 82 is stable. Scarlike densities along the periphery of the right minor fissure are unchanged. A 4 mm nodule in the right upper lobe on image 55 is also unchanged. There is mild dependent atelectasis. IMPRESSION: 1. No pulmonary embolism. No acute infiltrate. 2. Multiple bilateral pulmonary nodules measure up to 1.0 cm in the left upper lobe. These are unchanged since 11/27/2017. Another follow-up is recommended in 6 months if the diagnosis is not already known. *One or more of the following individualized dose reduction techniques were utilized for this examination: 1. Automated exposure control. 2. Adjustment of the mA and/or kV according to patient size. 3. Use of iterative reconstruction technique. Electronically signed by: Kari Loomis MD (04/21/2018 7:18 PM) [facility] DICTATED and SIGNED BY: MOISES LOOMIS MD DATE: 04/21/181911 Course & Med Decision Making Course & Med Decision Making Pertinent Labs and Imaging studies reviewed. (See chart for details) Emergency Department Course Patient present with left precordial chest pain DDx-PE, ACS, CHF, PNA, chest wall pain [6:30 PM: Troponin currently pending. CT angiogram currently pending. Care was turned over to Dr. Gallegos at shift change, pending final disposition. Report given.] 18:30 Patient endorsed to me by Dr. Ritter. Patient is stable emergency department. Patient has had persistent 4/10 chest pain since this morning. She notes it's worse with breathing and not worse with exertion. Serial ECGs note new T wave inversions lead III. Serial Troponins showed upward trend, though not positive for PA. CTA chest showed no PE, PNA or CHF with left pulmonary nodules. 19:[address] Ashford who agreed with admission. Patient's second ECG notes new T-wave inversions in III which are concerning for ischemia. Troponins upward trend. Patient was given aspirin and admitted to telemetry. Cardiology consulted. Dragon Disclaimer Dragon Disclaimer This electronic medical record was generated, in whole or in part, using a voice recognition dictation system. Departure Departure Impression: Primary Impression: Chest pain Additional Impression: Left upper lobe pulmonary nodule Disposition: ADMITTED INPATIENT Admitting Physician: Beatris Ashford Condition: STABLE Referrals: BEV LEVI MD (PCP) Problem Qualifiers CHERYL RITTER MD Apr 21, 2018 17:18 STERLING GALLEGOS MD Apr 21, 2018 18:32
[2018-04-21 17:21] LABS: BASO # 0.1 x10^3/uL (0.0-0.2); BASO % 1 % (0-3); EOS # 0.2 x10^3/uL (0.0-0.7); EOS % 3 % (0-3); HEMATOCRIT 38.8 % (36.0-47.0); HEMOGLOBIN 12.9 g/dL (12.0-15.5); LYMPH # 2.8 x10^3/uL (1.0-4.8); LYMPH % 42 % (24-48); MEAN CORPUSCULAR HEMOGLOBIN 27 pg (25-35); MEAN CORPUSCULAR HGB CONC 33 g/dL (31-37); MEAN CORPUSCULAR VOLUME 82 fL (79-100); MONO # 0.6 x10^3/uL (0.0-1.1); MONO % 8 % (0-9); NEUT # 3.1 x10^3uL (1.8-7.7); NEUT % 46 % (31-73); PLATELET COUNT 209 x10^3/uL (140-400); RED BLOOD COUNT 4.77 x10^6/uL (3.50-5.40); RED CELL DISTRIBUTION WIDTH 15.9 % (11.5-14.5); WHITE BLOOD COUNT 6.6 x10^3/uL (4.0-11.0)
[2018-04-21 17:30] LABS: CALCIUM 9.5 mg/dL (8.5-10.1); CREATININE 1.1 mg/dL (0.6-1.0); GFR 66.2; POTASSIUM 3.8 mmol/L (3.5-5.1)
[2018-04-21] MEDS ORDERED: IOHEXOL 300 MG/ML 100ML VIAL. IV ONE (17:30)
[2018-04-21 17:36] LABS: ALBUMIN 3.8 g/dL (3.4-5.0); ALBUMIN/GLOBULIN RATIO 0.8 (1.0-1.7); TOTAL BILIRUBIN 0.3 mg/dL (0.2-1.0); TOTAL PROTEIN 8.5 g/dL (6.4-8.2)
[2018-04-21 17:46] LABS: CREATINE KINASE 150 U/L (26-192)
[2018-04-21] MEDS ORDERED: IV NORMAL SALINE 1000ML BAG 1,000 ML IV ONE (18:30)
[2018-04-21] MEDS ORDERED: KETOROLAC 15 MG/ML VIAL. IV ONE (18:30)
[2018-04-21 18:56] LABS: BILIRUBIN,URINE NEGATIVE (NEG); CLARITY,URINE CLOUDY; COLOR,URINE YELLOW; NITRITE,URINE NEGATIVE (NEG); PROTEIN,URINE NEGATIVE (NEG-TRACE)
[2018-04-21 19:11] LABS: AMORPHOUS SEDIMENT,UR PRESENT /HPF; BACTERIA,URINE MODERATE /HPF (0-FEW); RBC,URINE 0 /HPF (0-2); SQUAMOUS EPITHELIAL CELL,UR MANY /LPF
--- NOTE | 2018-04-21 19:21 | RAD ---
EXAM: CT ANGIOGRAPHY OF THE CHEST WITH AND WITHOUT INTRAVENOUS CONTRAST. HISTORY: Shortness of breath, chest pain. TECHNIQUE: Computed tomographic angiography of the chest was performed before and after the intravenous administration of 75 mL Omnipaque 300. 3-D maximum intensity projections were also performed. COMPARISON: 11/27/2017. FINDINGS: Images of the upper abdomen reveal no acute abnormality. Bone windows reveal no suspicious lesions. No pulmonary emboli are identified. There is no aortic dissection or aneurysm. Mild stranding within the anterior mediastinal fat is consistent with a thymic remnant or rebound thymic hyperplasia and is stable. There are no pathologically enlarged mediastinal or axillary lymph nodes. There is no pleural or pericardial effusion. The heart is not enlarged. A lobulated uncalcified 10 x 8 mm left upper lobe nodule on image 34 is unchanged since the prior study. A 2 mm pleural-based nodule in the left upper lobe on image 69 is stable. A 5 mm noncalcified pleural-based nodule in the right middle lobe on image 82 is stable. Scarlike densities along the periphery of the right minor fissure are unchanged. A 4 mm nodule in the right upper lobe on image 55 is also unchanged. There is mild dependent atelectasis. IMPRESSION: 1. No pulmonary embolism. No acute infiltrate. 2. Multiple bilateral pulmonary nodules measure up to 1.0 cm in the left upper lobe. These are unchanged since 11/27/2017. Another follow-up is recommended in 6 months if the diagnosis is not already known. *One or more of the following individualized dose reduction techniques were utilized for this examination: 1. Automated exposure control. 2. Adjustment of the mA and/or kV according to patient size. 3. Use of iterative reconstruction technique. Electronically signed by: Kari Loomis MD (04/21/2018 7:18 PM) [facility]
--- NOTE | 2018-04-21 19:22 | RAD ---
EXAM: CHEST 1 VIEW. HISTORY: Left chest pain, shortness of breath. COMPARISON: 11/27/2017. FINDINGS: A frontal view of the chest is obtained. A nodule in the left upper lobe measures 1 cm and is better seen on CT. Refer to that study for more information. There are no confluent infiltrates. There are no confluent infiltrates. There is no pneumothorax or pleural effusion. The heart is not enlarged. IMPRESSION: 1. Recommend ongoing follow-up of the left upper lobe nodule as per the recommendations of CT. 2. No confluent infiltrates. Electronically signed by: Kari Loomis MD (04/21/2018 7:19 PM) [facility]
--- NOTE | 2018-04-21 22:35 | HP ---
ADMIT DATE: 04/21/2018 CHIEF COMPLAINT: Chest pain. 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 Basically, she presents with chest pain rated 7/10. She has associated anxiety. EKG had some subtle changes. I have discussed the case with the ER physician. We are going to admit the patient and consult Cardiology. PAST MEDICAL HISTORY: Benign. ALLERGIES: None. FAMILY HISTORY: Coronary disease. 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 She does not drink, smoke or take drugs. MEDICATIONS: Reviewed, please refer to the MRAD. REVIEW OF SYSTEMS: GENERAL: No history of weight change, weakness or fevers. SKIN: No bruising, hair changes or rashes. EYES: No blurred, double or loss of vision. NOSE AND THROAT: No history of nosebleeds, hoarseness or sore throat. HEART: She complains of chest pain. LUNGS: Denies cough, hemoptysis, wheezing or shortness of breath. GASTROINTESTINAL: Denies changes in appetite, nausea, vomiting, diarrhea or constipation. GENITOURINARY: No history of frequency, urgency, hesitancy or nocturia. NEUROLOGIC: Denies history of numbness, tingling, tremor or weakness. PSYCHIATRIC: No history of panic, anxiety or depression. ENDOCRINE: No history of heat or cold intolerance, polyuria or polydipsia. EXTREMITIES: Denies muscle weakness, joint pain, pain on walking or stiffness. PHYSICAL EXAMINATION: VITAL SIGNS: Temperature afebrile, pulse 80, respirations 18, blood pressure 122/90. GENERAL: She is alert, cooperative. HEART: Normal S1, S2. LUNGS: Clear. ABDOMEN: Soft. EXTREMITIES: No edema. SKIN: No rashes. ENDOCRINE: No thyromegaly. LYMPHATICS: No cervical nodes. HEMATOPOIETIC: No bruising. LABORATORY DATA: Troponin is 0. ASSESSMENT AND PLAN: Chest pain, rule out coronary disease. The patient has been admitted. We will check serial enzymes, serial EKGs. Consult Cardiology. Daily aspirin and home meds. HARVEY YEUNG DO DR: JESSICA/randall JOB#: [id number] / [id number]
[2018-04-22] MEDS ORDERED: HYDROcodone/APAP 5/325MG 1 TAB TABLET PO PRN (00:30)
[2018-04-22 03:00] VITALS: BP 90/55
--- NOTE | 2018-04-22 06:22 | EKG ---
[facility] [address] [place] [address] Test Date: 2018-04-21 Test Time: 18:55:16 Pat Name: FRANCIS GALLEGO Department: Room: 526 1 Gender: F Dental Director: : 1975 Requested By: STERLING GARCIA Order Number: [id number] Reading MD: Osmani Mckeon MD Measurements Intervals [place] Rate: 64 P: 26 WY: 138 QRS: 23 QRSD: 76 T: 22 QT: 386 QTc: 402 Interpretive Statements SINUS RHYTHM Electronically Signed On 04-26-2018 8:27:10 CDT by Osmani Mckeon MD
--- NOTE | 2018-04-22 06:57 | EKG ---
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
[2018-04-22 07:00] VITALS: BP 105/73
[2018-04-22 08:21] LABS: CHOLESTEROL/HDL RATIO 5.9
--- NOTE | 2018-04-22 09:34 | PDOC2 ---
CARDIAC CONSULT DATE OF CONSULT Date of Consult DATE: 04/22/18 TIME: 09:03 REASON FOR CONSULT Reason for Consult: Chest pain REFERRING PHYSICIAN Referring Physician: El SOURCE Source: Chart review, Patient HISTORY OF PRESENT ILLNESS HISTORY OF PRESENT ILLNESS This is a pleasant 42 yo AA female admitted for complains of chest pain. Reports that she has been having nausea intermittent in the last 2 days and also intermittent cough with heartburn in the last week. She reports lower back pain first then had left lower chest dull achy discomfort behind her breast that sometimes reproducible with deep breath. This is focal and reproducible with palpation. Most impressive discomfort she has is epigastric tenderness with mild palpation. No vomiting, diarrhea, no recent antibiotics, routine NSAIDs. No prior hx of CAD, VTE, arrhythmias. No falls or any recent injury. She does have little kids that she carry at times but exertional CP nor SOA with her regular activities. She is trying to lose wt but no form of routine exercise and has not started phentermine. PAST MEDICAL HISTORY Cardiovascular: HTN, Hyperlipidemia Pulmonary: No pertinent hx CENTRAL NERVOUS SYSTEM: Other (No pertient history) GI: GERD Psych: Anxiety, Depression Musculoskeletal: low back pain Rheumatologic: No pertinent hx Infectious disease: No pertinent hx ENT: No pertinent hx Renal/: No pertinent hx Endocrine: Other (ovarian cyst/adenomyosis) Dermatology: No pertinent hx Grav: 2 Para: 2 PAST SURGICAL HISTORY Past Surgical History: Appendectomy, FAMILY HISTORY Family History: Diabetes (mother), Heart Disease (father) SOCIAL HISTORY Smoke: No ALCOHOL: none Drugs: None Lives: with Family CURRENT MEDICATIONS CURRENT MEDICATIONS Current Medications Medications (Trade) Dose Ordered Sig/Vernell Route PRN Reason Start Time Stop Time Status Last Admin Dose Admin Aspirin (Children'S Aspirin) 324 mg 1X ONCE PO 04/21/18 17:15 04/21/18 17:20 DC 04/21/18 17:29 Nitroglycerin (Nitro-Bid Oint) 1 inch 1X ONCE TP 04/21/18 17:15 04/21/18 17:20 DC 04/21/18 17:30 Iohexol (Omnipaque 300 Mg/ml) 75 ml 1X ONCE IV 04/21/18 17:30 04/21/18 17:31 DC 04/21/18 17:30 Ketorolac Tromethamine (Toradol 15mg Vial) 15 mg 1X ONCE IV 04/21/18 18:30 04/21/18 18:34 DC 04/21/18 19:04 Sodium Chloride 1,000 ml @ 1,000 mls/hr 1X ONCE IV 04/21/18 18:30 04/21/18 19:29 DC 04/21/18 19:05 Acetaminophen/ Hydrocodone Bitart (Lortab 5/325) 1 tab PRN Q4HRS PRN PO MODERATE PAIN 04/22/18 00:30 04/22/18 00:33 ALLERGIES ALLERGIES: Coded Allergies: Sulfa (Sulfonamide Antibiotics) (Verified Allergy, Intermediate, hives, ) sulfamethoxazole (Verified Allergy, Intermediate, Hives, 04/21/18) trimethoprim (Verified Allergy, Intermediate, Hives, 04/21/18) gluten (Verified Adverse Reaction, Intermediate, Nausea, 04/21/18) ROS Review of System 14 point ROS evaluated with pertinent positives noted per HPI PSYCHOLOGICAL ROS: No: Memory difficulties PHYSICAL EXAM General: Alert, Oriented X3, Cooperative, No acute distress HEENT: Atraumatic, Mucous membr. moist/pink Lungs: Clear to auscultation, Normal air movement Heart: Regular rate (SR without significant ectopies overnight), Normal S1, Normal S2, No murmurs Abdomen: Soft, Other (epigastric tenderness) Extremities: No cyanosis, No edema Skin: No breakdown, No significant lesion Neuro: Normal speech, Sensation intact Psych/Mental Status: Mental status NL, Mood NL MUSCULOSKELETAL: Osteoarthritic changes both hands VITALS VITALS Vital Signs Date Time Temp Pulse Resp B/P (MAP) Pulse Ox O2 Delivery O2 Flow Rate FiO2 04/22/18 03:00 99.8 69 16 90/55 (67) 100 Room Air 99.8 LABS Lab: Laboratory Tests Test 04/21/18 17:10 04/21/18 18:15 04/21/18 18:45 04/21/18 22:06 White Blood Count 6.6 x10^3/uL (4.0-11.0) Red Blood Count 4.77 x10^6/uL (3.50-5.40) Hemoglobin 12.9 g/dL (12.0-15.5) Hematocrit 38.8 % (36.0-47.0) Mean Corpuscular Volume 82 fL (79-100) Mean Corpuscular Hemoglobin 27 pg (25-35) Mean Corpuscular Hemoglobin Concent 33 g/dL (31-37) Red Cell Distribution Width 15.9 % (11.5-14.5) Platelet Count 209 x10^3/uL (140-400) Neutrophils (%) (Auto) 46 % (31-73) Lymphocytes (%) (Auto) 42 % (24-48) Monocytes (%) (Auto) 8 % (0-9) Eosinophils (%) (Auto) 3 % (0-3) Basophils (%) (Auto) 1 % (0-3) Neutrophils # (Auto) 3.1 x10^3uL (1.8-7.7) Lymphocytes # (Auto) 2.8 x10^3/uL (1.0-4.8) Monocytes # (Auto) 0.6 x10^3/uL (0.0-1.1) Eosinophils # (Auto) 0.2 x10^3/uL (0.0-0.7) Basophils # (Auto) 0.1 x10^3/uL (0.0-0.2) Sodium Level 139 mmol/L (136-145) Potassium Level 3.8 mmol/L (3.5-5.1) Chloride Level 103 mmol/L (98-107) Carbon Dioxide Level 26 mmol/L (21-32) Anion Gap 10 (6-14) Blood Urea Nitrogen 11 mg/dL (7-20) Creatinine 1.1 mg/dL (0.6-1.0) Estimated GFR (Cockcroft-Gault) 66.2 BUN/Creatinine Ratio 10 (6-20) Glucose Level 80 mg/dL (70-99) Calcium Level 9.5 mg/dL (8.5-10.1) Total Bilirubin 0.3 mg/dL (0.2-1.0) Aspartate Amino Transf (AST/SGOT) 18 U/L (15-37) Alanine Aminotransferase (ALT/SGPT) 31 U/L (14-59) Alkaline Phosphatase 52 U/L (46-116) Creatine Kinase 150 U/L (26-192) Creatine Kinase MB (Mass) < 0.5 ng/mL (0.0-3.6) Creatine Kinase MB Relative Index % (0-4) Troponin I Quantitative < 0.017 ng/mL (0.000-0.055) 0.021 ng/mL (0.000-0.055) 0.023 ng/mL (0.000-0.055) Total Protein 8.5 g/dL (6.4-8.2) Albumin 3.8 g/dL (3.4-5.0) Albumin/Globulin Ratio 0.8 (1.0-1.7) Lipase 242 U/L (73-393) Urine Collection Type Unknown Urine Color Yellow Urine Clarity Cloudy Urine pH 7.0 Urine Specific [place] 1.020 Urine Protein Negative mg/dL (NEG-TRACE) Urine Glucose (UA) Negative mg/dL (NEG) Urine Ketones (Stick) Negative mg/dL (NEG) Urine Blood Negative (NEG) Urine Nitrite Negative (NEG) Urine Bilirubin Negative (NEG) Urine Urobilinogen Dipstick 1.0 mg/dL (0.2 mg/dL) Urine Leukocyte Esterase Moderate (NEG) Urine RBC 0 /HPF (0-2) Urine WBC 1-4 /HPF (0-4) Urine Squamous Epithelial Cells Many /LPF Urine Amorphous Sediment Present /HPF Urine Bacteria Moderate /HPF (0-FEW) Test 04/22/18 01:30 Troponin I Quantitative 0.023 ng/mL (0.000-0.055) Triglycerides Level 136 mg/dL (0-150) Cholesterol Level 213 mg/dL (0-200) LDL Cholesterol, Calculated 150 mg/dL (0-100) VLDL Cholesterol, Calculated 27 mg/dL (0-40) Non-HDL Cholesterol Calculated 177 mg/dL (0-129) HDL Cholesterol 36 mg/dL (40-60) Cholesterol/HDL Ratio 5.9 Thyroid Stimulating Hormone (TSH) 1.803 uIU/mL (0.358-3.74) ASSESSMENT/PLAN ASSESSMENT/PLAN 1. Atypical Chest pain: troponin series nml. EKG SR without acute changes by comparison. More on epigastric region reproducible. suspect GI 2. GERD exacerbation. 3. HTN: controlled with BB 4. HLP: no statin. Treating it with diet 5. Obesity: not on phentermine yet 6. Anxiety/depression 7. Hx of pulmonary nodule: pulmonary refferal per PCP Recommendations 1. If TTE is unremarkable for significant changes then may DC. Explained CAD symptoms and risk modifications. 2. Wt loss. May need statin therapy, will defer to outpt PCP. Encouraged routine exercise. Dietitian consult 3. Continue home BB and home prilosec. Mylanta or TUMS PRN. Discussed GERD management. YAHIR GLASGOW MUCK FARMER Apr 22, 2018 09:34
--- NOTE | 2018-04-22 10:50 | CARD ---
MR#: [id number] Date of Study: 04/22/2018 Ordering Physician: YAHIR GLASGOW, Referring Physician: HARVEY YEUNG Tech: Danuta Harrison RDCS APPROVED REPORT EXAM: Two-dimensional and M-mode echocardiogram with Doppler and color Doppler. Other Information Quality : GoodHR: 70bpm Rhythm : NSR INDICATION Chest Pain 2D DIMENSIONS RVDd2.5 (2.9-3.5cm)Left Atrium(2D)2.3 (1.6-4.0cm) IVSd1.1 (0.7-1.1cm)Aortic Root(2D)2.8 (2.0-3.7cm) LVDd4.1 (3.9-5.9cm)LVOT Diameter1.9 (1.8-2.4cm) PWd0.9 (0.7-1.1cm)LVDs2.9 (2.5-4.0cm) FS (%) 28.5 %SV40.9 ml LVEF(%)55.4 (>50%) M-Mode DIMENSIONS Left Atrium(MM)2.98 (2.5-4.0cm)Aortic Root2.98 (2.2-3.7cm) Aortic Valve AoV Peak Juan.116.9cm/sAoV VTI23.4cm AO Peak GR.5.5mmHgLVOT Peak Juan.102.4cm/s AO Mean GR.3mmHgAVA (VMAX)2.54cm2 CHIDI (VTI)2.70cm2 Mitral Valve MV E Dynhbgsd10.0cm/sMV E Peak Gr.3mmHg MV DECEL [id number] A Cavkotjb20.0cm/s MV E Mean Gr.1mmHgE/A Ratio0.9 MV A Uhgehzbl042ic Pulmonary Valve PV Peak Azkgtbbc59.2cm/s Tricuspid Valve TR P. Httlcrhs177bj/sRAP [id number] TR Peak Gr.57ywZfORKD38tmId Pulmonary Vein S1 Hjqbefbv21.3cm/sD2 Ksogktek33.8cm/s PVa [id number] LEFT VENTRICLE The left ventricle is normal size. There is normal left ventricular wall thickness. The left ventricu lar systolic function is normal and the ejection fraction is within normal range. The Ejection Fracti on is 55-60%. There is normal LV segmental wall motion. The left ventricular diastolic function and f illing is normal for age. RIGHT VENTRICLE The right ventricle is normal size. There is normal right ventricular wall thickness. The right ventr icular systolic function is normal. ATRIA The left atrium size is normal. The right atrium size is normal. The interatrial septum is intact wit h no evidence for an atrial septal defect or patent foramen ovale as noted on 2-D or Doppler imaging. AORTIC VALVE The aortic valve is trileaflet. The aortic valve is normal in structure and function. Doppler and Col or Flow revealed no significant aortic regurgitation. There is no significant aortic valvular stenosi s. MITRAL VALVE The mitral valve is normal in structure and function. There is no evidence of mitral valve prolapse. There is no mitral valve stenosis. Doppler and Color-flow revealed trace mitral regurgitation. TRICUSPID VALVE The tricuspid valve is normal in structure and function. Doppler and Color Flow revealed trace tricus pid regurgitation. The PA pressure was estimated at 16 mmHg. There is no tricuspid valve prolapse or vegetation. There is no tricuspid valve stenosis. PULMONIC VALVE The pulmonary valve is normal in structure and function. Doppler and Color Flow revealed no pulmonic valvular regurgitation. There is no pulmonic valvular stenosis. GREAT VESSELS The aortic root is normal in size. The ascending aorta is normal in size. PERICARDIAL EFFUSION There is no evidence of significant pericardial effusion. Critical Notification Critical Value: No <Conclusion> The left ventricle is normal size. The left ventricular systolic function is normal and the ejection fraction is within normal range. The Ejection Fraction is 55-60%. There is normal left ventricular wall thickness. There is no significant aortic valvular stenosis. Doppler and Color Flow revealed no significant aortic regurgitation. Doppler and Color-flow revealed trace mitral regurgitation. Doppler and Color Flow revealed trace tricuspid regurgitation. The PA pressure was estimated at 16 mmHg. Signed by : Abbe Luu MD Electronically Approved : 04/22/2018 10:49:26
[2018-04-22 11:00] VITALS: BP 121/81
--- NOTE | 2018-04-22 12:01 | PDOC ---
PROGRESS NOTES History of Present Illness History of Present Illness ASSESSMENT AND PLAN: Chest pain, rule out coronary disease. possible GERD admitted. tele echo check serial enzymes, serial EKGs. Consult Cardiology. Daily aspirin home meds. Vitals Vitals Vital Signs Date Time Temp Pulse Resp B/P (MAP) Pulse Ox O2 Delivery O2 Flow Rate FiO2 04/22/18 08:00 Room Air 04/22/18 07:00 98.4 76 17 105/73 (84) 98 98.4 Physical Exam General: Alert, Oriented X3, Cooperative, No acute distress Heart: Regular rate (SR without significant ectopies overnight), Normal S1, Normal S2, No murmurs Abdomen: Soft, Other (epigastric tenderness) Extremities: No cyanosis, No edema Skin: No breakdown, No significant lesion Labs LABS ATRIA The left atrium size is normal. The right atrium size is normal. The interatrial septum is intact with no evidence for an atrial septal defect or patent foramen ovale as noted on 2-D or Doppler imaging. AORTIC VALVE The aortic valve is trileaflet. The aortic valve is normal in structure and function. Doppler and Color Flow revealed no significant aortic regurgitation. There is no significant aortic valvular stenosis. MITRAL VALVE The mitral valve is normal in structure and function. There is no evidence of mitral valve prolapse. There is no mitral valve stenosis. Doppler and Color- flow revealed trace mitral regurgitation. TRICUSPID VALVE The tricuspid valve is normal in structure and function. Doppler and Color Flow revealed trace tricuspid regurgitation. The PA pressure was estimated at 16 mmHg. There is no tricuspid valve prolapse or vegetation. There is no tricuspid valve stenosis. PULMONIC VALVE The pulmonary valve is normal in structure and function. Doppler and Color Flow revealed no pulmonic valvular regurgitation. There is no pulmonic valvular stenosis. GREAT VESSELS The aortic root is normal in size. The ascending aorta is normal in size. PERICARDIAL EFFUSION There is no evidence of significant pericardial effusion. Critical Notification Critical Value: No <Conclusion> The left ventricle is normal size. The left ventricular systolic function is normal and the ejection fraction is within normal range. The Ejection Fraction is 55-60%. There is normal left ventricular wall thickness. There is no significant aortic valvular stenosis. Doppler and Color Flow revealed no significant aortic regurgitation. Doppler and Color-flow revealed trace mitral regurgitation. Doppler and Color Flow revealed trace tricuspid regurgitation. The PA pressure was estimated at 16 mmHg. Signed by : Abbe Luu MD Electronically Approved : 04/22/2018 10:49:26 EXAM: CT ANGIOGRAPHY OF THE CHEST WITH AND WITHOUT INTRAVENOUS CONTRAST. HISTORY: Shortness of breath, chest pain. TECHNIQUE: Computed tomographic angiography of the chest was performed before and after the intravenous administration of 75 mL Omnipaque 300. 3-D maximum intensity projections were also performed. COMPARISON: 11/27/2017. FINDINGS: Images of the upper abdomen reveal no acute abnormality. Bone windows reveal no suspicious lesions. No pulmonary emboli are identified. There is no aortic dissection or aneurysm. Mild stranding within the anterior mediastinal fat is consistent with a thymic remnant or rebound thymic hyperplasia and is stable. There are no pathologically enlarged mediastinal or axillary lymph nodes. There is no pleural or pericardial effusion. The heart is not enlarged. A lobulated uncalcified 10 x 8 mm left upper lobe nodule on image 34 is unchanged since the prior study. A 2 mm pleural-based nodule in the left upper lobe on image 69 is stable. A 5 mm noncalcified pleural-based nodule in the right middle lobe on image 82 is stable. Scarlike densities along the periphery of the right minor fissure are unchanged. A 4 mm nodule in the right upper lobe on image 55 is also unchanged. There is mild dependent atelectasis. IMPRESSION: 1. No pulmonary embolism. No acute infiltrate. 2. Multiple bilateral pulmonary nodules measure up to 1.0 cm in the left upper lobe. These are unchanged since 11/27/2017. Another follow-up is recommended in 6 months if the diagnosis is not already known. *One or more of the following individualized dose reduction techniques Laboratory Tests Test 04/21/18 17:10 04/21/18 18:15 04/21/18 18:45 04/21/18 22:06 White Blood Count 6.6 x10^3/uL (4.0-11.0) Red Blood Count 4.77 x10^6/uL (3.50-5.40) Hemoglobin 12.9 g/dL (12.0-15.5) Hematocrit 38.8 % (36.0-47.0) Mean Corpuscular Volume 82 fL (79-100) Mean Corpuscular Hemoglobin 27 pg (25-35) Mean Corpuscular Hemoglobin Concent 33 g/dL (31-37) Red Cell Distribution Width 15.9 % (11.5-14.5) Platelet Count 209 x10^3/uL (140-400) Neutrophils (%) (Auto) 46 % (31-73) Lymphocytes (%) (Auto) 42 % (24-48) Monocytes (%) (Auto) 8 % (0-9) Eosinophils (%) (Auto) 3 % (0-3) Basophils (%) (Auto) 1 % (0-3) Neutrophils # (Auto) 3.1 x10^3uL (1.8-7.7) Lymphocytes # (Auto) 2.8 x10^3/uL (1.0-4.8) Monocytes # (Auto) 0.6 x10^3/uL (0.0-1.1) Eosinophils # (Auto) 0.2 x10^3/uL (0.0-0.7) Basophils # (Auto) 0.1 x10^3/uL (0.0-0.2) Sodium Level 139 mmol/L (136-145) Potassium Level 3.8 mmol/L (3.5-5.1) Chloride Level 103 mmol/L (98-107) Carbon Dioxide Level 26 mmol/L (21-32) Anion Gap 10 (6-14) Blood Urea Nitrogen 11 mg/dL (7-20) Creatinine 1.1 mg/dL (0.6-1.0) Estimated GFR (Cockcroft-Gault) 66.2 BUN/Creatinine Ratio 10 (6-20) Glucose Level 80 mg/dL (70-99) Calcium Level 9.5 mg/dL (8.5-10.1) Total Bilirubin 0.3 mg/dL (0.2-1.0) Aspartate Amino Transf (AST/SGOT) 18 U/L (15-37) Alanine Aminotransferase (ALT/SGPT) 31 U/L (14-59) Alkaline Phosphatase 52 U/L (46-116) Creatine Kinase 150 U/L (26-192) Creatine Kinase MB (Mass) < 0.5 ng/mL (0.0-3.6) Creatine Kinase MB Relative Index % (0-4) Troponin I Quantitative < 0.017 ng/mL (0.000-0.055) 0.021 ng/mL (0.000-0.055) 0.023 ng/mL (0.000-0.055) Total Protein 8.5 g/dL (6.4-8.2) Albumin 3.8 g/dL (3.4-5.0) Albumin/Globulin Ratio 0.8 (1.0-1.7) Lipase 242 U/L (73-393) Urine Collection Type Unknown Urine Color Yellow Urine Clarity Cloudy Urine pH 7.0 Urine Specific [place] 1.020 Urine Protein Negative mg/dL (NEG-TRACE) Urine Glucose (UA) Negative mg/dL (NEG) Urine Ketones (Stick) Negative mg/dL (NEG) Urine Blood Negative (NEG) Urine Nitrite Negative (NEG) Urine Bilirubin Negative (NEG) Urine Urobilinogen Dipstick 1.0 mg/dL (0.2 mg/dL) Urine Leukocyte Esterase Moderate (NEG) Urine RBC 0 /HPF (0-2) Urine WBC 1-4 /HPF (0-4) Urine Squamous Epithelial Cells Many /LPF Urine Amorphous Sediment Present /HPF Urine Bacteria Moderate /HPF (0-FEW) Test 04/22/18 01:30 Troponin I Quantitative 0.023 ng/mL (0.000-0.055) Triglycerides Level 136 mg/dL (0-150) Cholesterol Level 213 mg/dL (0-200) LDL Cholesterol, Calculated 150 mg/dL (0-100) VLDL Cholesterol, Calculated 27 mg/dL (0-40) Non-HDL Cholesterol Calculated 177 mg/dL (0-129) HDL Cholesterol 36 mg/dL (40-60) Cholesterol/HDL Ratio 5.9 Thyroid Stimulating Hormone (TSH) 1.803 uIU/mL (0.358-3.74) Assessment and Plan Assessmemt and Plan Problems Medical Problems: (1) Chest pain Status: Acute (2) Left upper lobe pulmonary nodule Status: Acute Comment Review of Relevant I have reviewed the following items mily (where applicable) has been applied. Labs Laboratory Tests Test 04/21/18 17:10 04/21/18 18:15 04/21/18 18:45 04/21/18 22:06 White Blood Count 6.6 x10^3/uL (4.0-11.0) Red Blood Count 4.77 x10^6/uL (3.50-5.40) Hemoglobin 12.9 g/dL (12.0-15.5) Hematocrit 38.8 % (36.0-47.0) Mean Corpuscular Volume 82 fL (79-100) Mean Corpuscular Hemoglobin 27 pg (25-35) Mean Corpuscular Hemoglobin Concent 33 g/dL (31-37) Red Cell Distribution Width 15.9 % (11.5-14.5) Platelet Count 209 x10^3/uL (140-400) Neutrophils (%) (Auto) 46 % (31-73) Lymphocytes (%) (Auto) 42 % (24-48) Monocytes (%) (Auto) 8 % (0-9) Eosinophils (%) (Auto) 3 % (0-3) Basophils (%) (Auto) 1 % (0-3) Neutrophils # (Auto) 3.1 x10^3uL (1.8-7.7) Lymphocytes # (Auto) 2.8 x10^3/uL (1.0-4.8) Monocytes # (Auto) 0.6 x10^3/uL (0.0-1.1) Eosinophils # (Auto) 0.2 x10^3/uL (0.0-0.7) Basophils # (Auto) 0.1 x10^3/uL (0.0-0.2) Sodium Level 139 mmol/L (136-145) Potassium Level 3.8 mmol/L (3.5-5.1) Chloride Level 103 mmol/L (98-107) Carbon Dioxide Level 26 mmol/L (21-32) Anion Gap 10 (6-14) Blood Urea Nitrogen 11 mg/dL (7-20) Creatinine 1.1 mg/dL (0.6-1.0) Estimated GFR (Cockcroft-Gault) 66.2 BUN/Creatinine Ratio 10 (6-20) Glucose Level 80 mg/dL (70-99) Calcium Level 9.5 mg/dL (8.5-10.1) Total Bilirubin 0.3 mg/dL (0.2-1.0) Aspartate Amino Transf (AST/SGOT) 18 U/L (15-37) Alanine Aminotransferase (ALT/SGPT) 31 U/L (14-59) Alkaline Phosphatase 52 U/L (46-116) Creatine Kinase 150 U/L (26-192) Creatine Kinase MB (Mass) < 0.5 ng/mL (0.0-3.6) Creatine Kinase MB Relative Index % (0-4) Troponin I Quantitative < 0.017 ng/mL (0.000-0.055) 0.021 ng/mL (0.000-0.055) 0.023 ng/mL (0.000-0.055) Total Protein 8.5 g/dL (6.4-8.2) Albumin 3.8 g/dL (3.4-5.0) Albumin/Globulin Ratio 0.8 (1.0-1.7) Lipase 242 U/L (73-393) Urine Collection Type Unknown Urine Color Yellow Urine Clarity Cloudy Urine pH 7.0 Urine Specific [place] 1.020 Urine Protein Negative mg/dL (NEG-TRACE) Urine Glucose (UA) Negative mg/dL (NEG) Urine Ketones (Stick) Negative mg/dL (NEG) Urine Blood Negative (NEG) Urine Nitrite Negative (NEG) Urine Bilirubin Negative (NEG) Urine Urobilinogen Dipstick 1.0 mg/dL (0.2 mg/dL) Urine Leukocyte Esterase Moderate (NEG) Urine RBC 0 /HPF (0-2) Urine WBC 1-4 /HPF (0-4) Urine Squamous Epithelial Cells Many /LPF Urine Amorphous Sediment Present /HPF Urine Bacteria Moderate /HPF (0-FEW) Test 04/22/18 01:30 Troponin I Quantitative 0.023 ng/mL (0.000-0.055) Triglycerides Level 136 mg/dL (0-150) Cholesterol Level 213 mg/dL (0-200) LDL Cholesterol, Calculated 150 mg/dL (0-100) VLDL Cholesterol, Calculated 27 mg/dL (0-40) Non-HDL Cholesterol Calculated 177 mg/dL (0-129) HDL Cholesterol 36 mg/dL (40-60) Cholesterol/HDL Ratio 5.9 Thyroid Stimulating Hormone (TSH) 1.803 uIU/mL (0.358-3.74) Laboratory Tests Test 04/21/18 17:10 04/21/18 18:15 04/21/18 18:45 04/21/18 22:06 White Blood Count 6.6 x10^3/uL (4.0-11.0) Red Blood Count 4.77 x10^6/uL (3.50-5.40) Hemoglobin 12.9 g/dL (12.0-15.5) Hematocrit 38.8 % (36.0-47.0) Mean Corpuscular Volume 82 fL (79-100) Mean Corpuscular Hemoglobin 27 pg (25-35) Mean Corpuscular Hemoglobin Concent 33 g/dL (31-37) Red Cell Distribution Width 15.9 % (11.5-14.5) Platelet Count 209 x10^3/uL (140-400) Neutrophils (%) (Auto) 46 % (31-73) Lymphocytes (%) (Auto) 42 % (24-48) Monocytes (%) (Auto) 8 % (0-9) Eosinophils (%) (Auto) 3 % (0-3) Basophils (%) (Auto) 1 % (0-3) Neutrophils # (Auto) 3.1 x10^3uL (1.8-7.7) Lymphocytes # (Auto) 2.8 x10^3/uL (1.0-4.8) Monocytes # (Auto) 0.6 x10^3/uL (0.0-1.1) Eosinophils # (Auto) 0.2 x10^3/uL (0.0-0.7) Basophils # (Auto) 0.1 x10^3/uL (0.0-0.2) Sodium Level 139 mmol/L (136-145) Potassium Level 3.8 mmol/L (3.5-5.1) Chloride Level 103 mmol/L (98-107) Carbon Dioxide Level 26 mmol/L (21-32) Anion Gap 10 (6-14) Blood Urea Nitrogen 11 mg/dL (7-20) Creatinine 1.1 mg/dL (0.6-1.0) Estimated GFR (Cockcroft-Gault) 66.2 BUN/Creatinine Ratio 10 (6-20) Glucose Level 80 mg/dL (70-99) Calcium Level 9.5 mg/dL (8.5-10.1) Total Bilirubin 0.3 mg/dL (0.2-1.0) Aspartate Amino Transf (AST/SGOT) 18 U/L (15-37) Alanine Aminotransferase (ALT/SGPT) 31 U/L (14-59) Alkaline Phosphatase 52 U/L (46-116) Creatine Kinase 150 U/L (26-192) Creatine Kinase MB (Mass) < 0.5 ng/mL (0.0-3.6) Creatine Kinase MB Relative Index % (0-4) Troponin I Quantitative < 0.017 ng/mL (0.000-0.055) 0.021 ng/mL (0.000-0.055) 0.023 ng/mL (0.000-0.055) Total Protein 8.5 g/dL (6.4-8.2) Albumin 3.8 g/dL (3.4-5.0) Albumin/Globulin Ratio 0.8 (1.0-1.7) Lipase 242 U/L (73-393) Urine Collection Type Unknown Urine Color Yellow Urine Clarity Cloudy Urine pH 7.0 Urine Specific [place] 1.020 Urine Protein Negative mg/dL (NEG-TRACE) Urine Glucose (UA) Negative mg/dL (NEG) Urine Ketones (Stick) Negative mg/dL (NEG) Urine Blood Negative (NEG) Urine Nitrite Negative (NEG) Urine Bilirubin Negative (NEG) Urine Urobilinogen Dipstick 1.0 mg/dL (0.2 mg/dL) Urine Leukocyte Esterase Moderate (NEG) Urine RBC 0 /HPF (0-2) Urine WBC 1-4 /HPF (0-4) Urine Squamous Epithelial Cells Many /LPF Urine Amorphous Sediment Present /HPF Urine Bacteria Moderate /HPF (0-FEW) Test 04/22/18 01:30 Troponin I Quantitative 0.023 ng/mL (0.000-0.055) Triglycerides Level 136 mg/dL (0-150) Cholesterol Level 213 mg/dL (0-200) LDL Cholesterol, Calculated 150 mg/dL (0-100) VLDL Cholesterol, Calculated 27 mg/dL (0-40) Non-HDL Cholesterol Calculated 177 mg/dL (0-129) HDL Cholesterol 36 mg/dL (40-60) Cholesterol/HDL Ratio 5.9 Thyroid Stimulating Hormone (TSH) 1.803 uIU/mL (0.358-3.74) Medications Current Medications Aspirin (Children'S Aspirin) 324 mg 1X ONCE PO Last administered on at 17:29; Start 04/21/18 at 17:15; Stop 04/21/18 at 17:20; Status DC Nitroglycerin (Nitro-Bid Oint) 1 inch 1X ONCE TP Last administered on at 17:30; Start 04/21/18 at 17:15; Stop 04/21/18 at 17:20; Status DC Iohexol (Omnipaque 300 Mg/ml) 75 ml 1X ONCE IV Last administered on at 17:30; Start 04/21/18 at 17:30; Stop 04/21/18 at 17:31; Status DC Ketorolac Tromethamine (Toradol 15mg Vial) 15 mg 1X ONCE IV Last administered on 04/21/18at 19:04; Start 04/21/18 at 18:30; Stop 04/21/18 at 18:34; Status DC Sodium Chloride 1,000 ml @ 1,000 mls/hr 1X ONCE IV Last administered on 04/21at 19:05; Start 04/21/18 at 18:30; Stop 04/21/18 at 19:29; Status DC Aspirin (Children'S Aspirin) 324 mg 1X ONCE PO ; Start 04/21/18 at 19:30; Stop 04/21/18 at 19:31; Status DC Acetaminophen/ Hydrocodone Bitart (Lortab 5/325) 1 tab PRN Q4HRS PRN PO MODERATE PAIN Last administered on 04/22/18at 00:33; Start 04/22/18 at 00:30 Active Scripts Active Hydrocodone-Apap 5-325 (Hydrocodone Bit/Acetaminophen) 1 Each Tablet 2 Tab PO PRN Q6HRS PRN Ibuprofen 800 Mg Tablet 800 Mg PO PRN TID PRN take with food or milk to avoid upsetting stomach Dilaudid (Hydromorphone Hcl) 2 Mg Tablet 2 Mg PO PRN Q4HRS PRN Reported Percocet 5-325 Mg Tablet (Oxycodone/Acetaminophen) 1 Each Tablet 1-2 Tab PO Q4- 6HRS Tablet (Pnv Cmb#95/Ferrous Fumarate/Fa) 1 Each Tablet 1 Tab PO DAILY Metoprolol Tartrate 50 Mg Tablet 1 Tab PO HS Omeprazole 40 Mg Capsule. 1 Cap PO DAILY Vitals/I & O Vital Sign - Last 24 Hours 04/21/18 04/21/18 04/21/18 04/21/18 17:00 17:30 17:30 18:00 Temp 98.1 98.1 Pulse 70 79 66 68 Resp 20 16 16 B/P (MAP) 163/102 (122) 146/91 152/88 (109) 141/86 (104) Pulse Ox 100 98 98 O2 Delivery Room Air Room Air Room Air 04/21/18 04/21/18 04/21/18 04/21/18 18:30 19:00 19:30 20:00 Pulse 70 70 72 68 Resp 16 16 16 16 B/P (MAP) 139/89 (106) 152/101 (118) 128/78 (95) 127/80 (96) Pulse Ox 97 98 99 99 O2 Delivery Room Air Room Air Room Air Room Air 04/21/18 04/21/18 04/21/18 04/21/18 20:30 21:00 21:30 22:00 Pulse 72 78 88 80 Resp 16 B/P (MAP) 120/74 (89) 118/80 (93) 111/71 (84) 106/67 (80) Pulse Ox 98 98 98 98 O2 Delivery Room Air Room Air Room Air Room Air 04/21/18 04/21/18 04/22/18 04/22/18 22:30 23:25 00:33 01:33 Pulse 87 Resp 18 18 18 B/P (MAP) 125/86 (99) Pulse Ox 98 97 97 O2 Delivery Room Air Room Air Room Air Room Air 04/22/18 04/22/18 04/22/18 03:00 07:00 08:00 Temp 99.8 98.4 99.8 98.4 Pulse 69 76 Resp 16 17 B/P (MAP) 90/55 (67) 105/73 (84) Pulse Ox 100 98 O2 Delivery Room Air Room Air Room Air Intake and Output 04/21/18 04/21/18 04/22/18 15:00 23:00 07:00 Intake Total 1000 ml 0 ml Balance 1000 ml 0 ml CARLY CHANG MD Apr 22, 2018 12:01
[2018-04-22 15:00] VITALS: BP 105/69
[2018-04-22] MEDS ORDERED: PANTOPRAZOLE 40 MG TABLET.DR. PO SCH (15:00)
--- NOTE | 2018-04-22 17:40 | PDOC3 ---
Discharge Summary Date of Admission: Apr 21, 2018 Date of Discharge: Apr 22, 2018 Follow-Up: 3-5 days Admitting Diagnosis comment: discharge diagnosis Chest pain, rule out coronary disease. possible GERD admitted. tele echo check serial enzymes, serial EKGs. Consult Cardiology. home ok with cardiology by verbal nurse report on floor Daily aspirin home meds. Vitals Vitals Vital Signs Date Time Temp Pulse Resp B/P (MAP) Pulse Ox O2 Delivery O2 Flow Rate FiO2 04/22/18 08:00 Room Air 04/22/18 07:00 98.4 76 17 105/73 (84) 98 98.4 Physical Exam General: Alert, Oriented X3, Cooperative, No acute distress Heart: Regular rate (SR without significant ectopies overnight), Normal S1, Normal S2, No murmurs Abdomen: Soft, Other (epigastric tenderness) Extremities: No cyanosis, No edema Skin: No breakdown, No significant lesion Labs LABS ATRIA The left atrium size is normal. The right atrium size is normal. The interatrial septum is intact with no evidence for an atrial septal defect or patent foramen ovale as noted on 2-D or Doppler imaging. AORTIC VALVE The aortic valve is trileaflet. The aortic valve is normal in structure and function. Doppler and Color Flow revealed no significant aortic regurgitation. There is no significant aortic valvular stenosis. MITRAL VALVE The mitral valve is normal in structure and function. There is no evidence of mitral valve prolapse. There is no mitral valve stenosis. Doppler and Color- flow revealed trace mitral regurgitation. TRICUSPID VALVE The tricuspid valve is normal in structure and function. Doppler and Color Flow revealed trace tricuspid regurgitation. The PA pressure was estimated at 16 mmHg. There is no tricuspid valve prolapse or vegetation. There is no tricuspid valve stenosis. PULMONIC VALVE The pulmonary valve is normal in structure and function. Doppler and Color Flow revealed no pulmonic valvular regurgitation. There is no pulmonic valvular stenosis. GREAT VESSELS The aortic root is normal in size. The ascending aorta is normal in size. PERICARDIAL EFFUSION There is no evidence of significant pericardial effusion. Critical Notification Critical Value: No <Conclusion> The left ventricle is normal size. The left ventricular systolic function is normal and the ejection fraction is within normal range. The Ejection Fraction is 55-60%. There is normal left ventricular wall thickness. There is no significant aortic valvular stenosis. Doppler and Color Flow revealed no significant aortic regurgitation. Doppler and Color-flow revealed trace mitral regurgitation. Doppler and Color Flow revealed trace tricuspid regurgitation. The PA pressure was estimated at 16 mmHg. Signed by : Abbe Luu MD Electronically Approved : 04/22/2018 10:49:26 EXAM: CT ANGIOGRAPHY OF THE CHEST WITH AND WITHOUT INTRAVENOUS CONTRAST. HISTORY: Shortness of breath, chest pain. TECHNIQUE: Computed tomographic angiography of the chest was performed before and after the intravenous administration of 75 mL Omnipaque 300. 3-D maximum intensity projections were also performed. COMPARISON: 11/27/2017. FINDINGS: Images of the upper abdomen reveal no acute abnormality. Bone windows reveal no suspicious lesions. No pulmonary emboli are identified. There is no aortic dissection or aneurysm. Mild stranding within the anterior mediastinal fat is consistent with a thymic remnant or rebound thymic hyperplasia and is stable. There are no pathologically enlarged mediastinal or axillary lymph nodes. There is no pleural or pericardial effusion. The heart is not enlarged. A lobulated uncalcified 10 x 8 mm left upper lobe nodule on image 34 is unchanged since the prior study. A 2 mm pleural-based nodule in the left upper lobe on image 69 is stable. A 5 mm noncalcified pleural-based nodule in the right middle lobe on image 82 is stable. Scarlike densities along the periphery of the right minor fissure are unchanged. A 4 mm nodule in the right upper lobe on image 55 is also unchanged. There is mild dependent atelectasis. IMPRESSION: 1. No pulmonary embolism. No acute infiltrate. 2. Multiple bilateral pulmonary nodules measure up to 1.0 cm in the left upper lobe. These are unchanged since 11/27/2017. Another follow-up is recommended in 6 months if the diagnosis is not already known. FINAL DIAGNOSIS Problems Medical Problems: (1) Chest pain Status: Acute (2) Left upper lobe pulmonary nodule Status: Acute Brief Hospital Course Ms. Becerril is a 42 old [sex] who presented with [ chest pain] CONDITION AT DISCHARGE: Improved Discharge Medications Current Medications Aspirin (Children'S Aspirin) 324 mg 1X ONCE PO Last administered on at 17:29; Start 04/21/18 at 17:15; Stop 04/21/18 at 17:20; Status DC Nitroglycerin (Nitro-Bid Oint) 1 inch 1X ONCE TP Last administered on at 17:30; Start 04/21/18 at 17:15; Stop 04/21/18 at 17:20; Status DC Iohexol (Omnipaque 300 Mg/ml) 75 ml 1X ONCE IV Last administered on at 17:30; Start 04/21/18 at 17:30; Stop 04/21/18 at 17:31; Status DC Ketorolac Tromethamine (Toradol 15mg Vial) 15 mg 1X ONCE IV Last administered on 04/21/18at 19:04; Start 04/21/18 at 18:30; Stop 04/21/18 at 18:34; Status DC Sodium Chloride 1,000 ml @ 1,000 mls/hr 1X ONCE IV Last administered on 04/21at 19:05; Start 04/21/18 at 18:30; Stop 04/21/18 at 19:29; Status DC Aspirin (Children'S Aspirin) 324 mg 1X ONCE PO ; Start 04/21/18 at 19:30; Stop 04/21/18 at 19:31; Status DC Acetaminophen/ Hydrocodone Bitart (Lortab 5/325) 1 tab PRN Q4HRS PRN PO MODERATE PAIN Last administered on 04/22/18at 00:33; Start 04/22/18 at 00:30 Pantoprazole Sodium (Protonix) 40 mg DAILYAC PO Last administered on at 14:36; Start 04/22/18 at 15:00 Active Scripts Active Hydrocodone-Apap 5-325 (Hydrocodone Bit/Acetaminophen) 1 Each Tablet 2 Tab PO PRN Q6HRS PRN Ibuprofen 800 Mg Tablet 800 Mg PO PRN TID PRN take with food or milk to avoid upsetting stomach Dilaudid (Hydromorphone Hcl) 2 Mg Tablet 2 Mg PO PRN Q4HRS PRN Reported Percocet 5-325 Mg Tablet (Oxycodone/Acetaminophen) 1 Each Tablet 1-2 Tab PO Q4- 6HRS Tablet (Pnv Cmb#95/Ferrous Fumarate/Fa) 1 Each Tablet 1 Tab PO DAILY Metoprolol Tartrate 50 Mg Tablet 1 Tab PO HS Omeprazole 40 Mg Capsule.dr 1 Cap PO DAILY Vital Signs Vital Signs Date Time Temp Pulse Resp B/P (MAP) Pulse Ox O2 Delivery O2 Flow Rate FiO2 04/22/18 15:00 98.0 81 20 105/69 (81) 95 Room Air 98.0 Labs Laboratory Tests Test 04/21/18 17:10 04/21/18 18:15 04/21/18 18:45 04/21/18 22:06 White Blood Count 6.6 x10^3/uL (4.0-11.0) Red Blood Count 4.77 x10^6/uL (3.50-5.40) Hemoglobin 12.9 g/dL (12.0-15.5) Hematocrit 38.8 % (36.0-47.0) Mean Corpuscular Volume 82 fL (79-100) Mean Corpuscular Hemoglobin 27 pg (25-35) Mean Corpuscular Hemoglobin Concent 33 g/dL (31-37) Red Cell Distribution Width 15.9 % (11.5-14.5) Platelet Count 209 x10^3/uL (140-400) Neutrophils (%) (Auto) 46 % (31-73) Lymphocytes (%) (Auto) 42 % (24-48) Monocytes (%) (Auto) 8 % (0-9) Eosinophils (%) (Auto) 3 % (0-3) Basophils (%) (Auto) 1 % (0-3) Neutrophils # (Auto) 3.1 x10^3uL (1.8-7.7) Lymphocytes # (Auto) 2.8 x10^3/uL (1.0-4.8) Monocytes # (Auto) 0.6 x10^3/uL (0.0-1.1) Eosinophils # (Auto) 0.2 x10^3/uL (0.0-0.7) Basophils # (Auto) 0.1 x10^3/uL (0.0-0.2) Sodium Level 139 mmol/L (136-145) Potassium Level 3.8 mmol/L (3.5-5.1) Chloride Level 103 mmol/L (98-107) Carbon Dioxide Level 26 mmol/L (21-32) Anion Gap 10 (6-14) Blood Urea Nitrogen 11 mg/dL (7-20) Creatinine 1.1 mg/dL (0.6-1.0) Estimated GFR (Cockcroft-Gault) 66.2 BUN/Creatinine Ratio 10 (6-20) Glucose Level 80 mg/dL (70-99) Calcium Level 9.5 mg/dL (8.5-10.1) Total Bilirubin 0.3 mg/dL (0.2-1.0) Aspartate Amino Transf (AST/SGOT) 18 U/L (15-37) Alanine Aminotransferase (ALT/SGPT) 31 U/L (14-59) Alkaline Phosphatase 52 U/L (46-116) Creatine Kinase 150 U/L (26-192) Creatine Kinase MB (Mass) < 0.5 ng/mL (0.0-3.6) Creatine Kinase MB Relative Index % (0-4) Troponin I Quantitative < 0.017 ng/mL (0.000-0.055) 0.021 ng/mL (0.000-0.055) 0.023 ng/mL (0.000-0.055) Total Protein 8.5 g/dL (6.4-8.2) Albumin 3.8 g/dL (3.4-5.0) Albumin/Globulin Ratio 0.8 (1.0-1.7) Lipase 242 U/L (73-393) Urine Collection Type Unknown Urine Color Yellow Urine Clarity Cloudy Urine pH 7.0 Urine Specific [place] 1.020 Urine Protein Negative mg/dL (NEG-TRACE) Urine Glucose (UA) Negative mg/dL (NEG) Urine Ketones (Stick) Negative mg/dL (NEG) Urine Blood Negative (NEG) Urine Nitrite Negative (NEG) Urine Bilirubin Negative (NEG) Urine Urobilinogen Dipstick 1.0 mg/dL (0.2 mg/dL) Urine Leukocyte Esterase Moderate (NEG) Urine RBC 0 /HPF (0-2) Urine WBC 1-4 /HPF (0-4) Urine Squamous Epithelial Cells Many /LPF Urine Amorphous Sediment Present /HPF Urine Bacteria Moderate /HPF (0-FEW) Test 04/22/18 01:30 Troponin I Quantitative 0.023 ng/mL (0.000-0.055) Triglycerides Level 136 mg/dL (0-150) Cholesterol Level 213 mg/dL (0-200) LDL Cholesterol, Calculated 150 mg/dL (0-100) VLDL Cholesterol, Calculated 27 mg/dL (0-40) Non-HDL Cholesterol Calculated 177 mg/dL (0-129) HDL Cholesterol 36 mg/dL (40-60) Cholesterol/HDL Ratio 5.9 Thyroid Stimulating Hormone (TSH) 1.803 uIU/mL (0.358-3.74) Laboratory Tests Test 04/21/18 18:15 04/21/18 18:45 04/21/18 22:06 04/22/18 01:30 Urine Collection Type Unknown Urine Color Yellow Urine Clarity Cloudy Urine pH 7.0 Urine Specific [place] 1.020 Urine Protein Negative mg/dL (NEG-TRACE) Urine Glucose (UA) Negative mg/dL (NEG) Urine Ketones (Stick) Negative mg/dL (NEG) Urine Blood Negative (NEG) Urine Nitrite Negative (NEG) Urine Bilirubin Negative (NEG) Urine Urobilinogen Dipstick 1.0 mg/dL (0.2 mg/dL) Urine Leukocyte Esterase Moderate (NEG) Urine RBC 0 /HPF (0-2) Urine WBC 1-4 /HPF (0-4) Urine Squamous Epithelial Cells Many /LPF Urine Amorphous Sediment Present /HPF Urine Bacteria Moderate /HPF (0-FEW) Troponin I Quantitative 0.021 ng/mL (0.000-0.055) 0.023 ng/mL (0.000-0.055) 0.023 ng/mL (0.000-0.055) Triglycerides Level 136 mg/dL (0-150) Cholesterol Level 213 mg/dL (0-200) LDL Cholesterol, Calculated 150 mg/dL (0-100) VLDL Cholesterol, Calculated 27 mg/dL (0-40) Non-HDL Cholesterol Calculated 177 mg/dL (0-129) HDL Cholesterol 36 mg/dL (40-60) Cholesterol/HDL Ratio 5.9 Thyroid Stimulating Hormone (TSH) 1.803 uIU/mL (0.358-3.74) Allergies Allergies Coded Allergies Type Severity Reaction Last Updated Verified Sulfa (Sulfonamide Antibiotics) Allergy Intermediate hives 04/21/18 Yes sulfamethoxazole Allergy Intermediate Hives 04/21/18 Yes trimethoprim Allergy Intermediate Hives 04/21/18 Yes gluten Adverse Reaction Intermediate Nausea 04/21/18 Yes Disposition/Orders: D/C to Home Patient Instructions d/c planning 33 min CARLY CHANG MD Apr 22, 2018 17:39
--- NOTE | 2018-04-22 17:41 | DISCH ---
DISCHARGE INSTRUCTIONS Condition on Discharge Condition on Discharge: Stable Activity After Discharge Activity Instructions for Disc: Resume previous activity Lifting Instructions after Dis: No heavy lifting, No pulling or pushing Exercise Instruction after Dis: Walk 10 min, 3 x per day Driving Instructions after Dis: Do not drive today, Other, see below Diet after Discharge Diet after Discharge: Regular Contacting the DR. after DC Call your doctor for: If your condition worsens CARLY CHANG MD Apr 22, 2018 17:41
== END 2018-04-22 18:05 | disposition home or self-care (01) ==
LOC: ER 16:57 → 5 NORTH 19:30
PROVIDERS: ADMIT Internal Medicine; ATTEND Internal Medicine
DX: R07.9 Chest pain, unspecified (principal); F41.9 Anxiety disorder, unspecified; F32.9 Major depressive disorder, single episode, unspecified; E78.5 Hyperlipidemia, unspecified; E66.9 Obesity, unspecified; I10 Essential (primary) hypertension; K21.9 Gastro-esophageal reflux disease without esophagitis; Z82.49 Family history of ischemic heart disease and other diseases of the circulatory system; Z83.3 Family history of diabetes mellitus; Z87.442 Personal history of urinary calculi; Z87.891 Personal history of nicotine dependence; Z90.49 Acquired absence of other specified parts of digestive tract
CPT/HCPCS: 36415; 71045; 71275; 80053; 80061; 81001; 82553; 83690; 84443; 84484; 85025; 87086; 93005; 93306; 96374; 99285; G0378; J1885; J7030; Q9967; G0379

== ENCOUNTER 2018-07-15 21:20 | Emergency (ER) | payer BC ==
[~2018-07-15] VITALS: Ht 160 cm; Wt 74.8 kg
[~2018-07-15 21:20] MED LIST changes: -HYDR-2758 PO; +HYDR-2761 PO; -OXYC-323 PO; +OXYC1TAB15 PO
[2018-07-15] MEDS ORDERED: MORPHINE SULFATE 4 MG/ML VIAL. IV/SQ PRN (22:15)
--- NOTE | 2018-07-15 22:15 | PHYS DOC ---
Past Medical History Past Medical History: High Cholesterol, Hypertension Past Surgical History: Appendectomy, , Tubal ligation Additional Past Surgical Histo: cyst off ovary, abdominal plasty Smoking: Cigarettes (The patient is a nonsmoker.) Alcohol Use: None Drug Use: None Adult General Chief Complaint Chief Complaint: ABDOMINAL PAIN HPI HPI Patient is a 42-year-old female who presents to the emergency room for evaluation. She states for the past week she has had waxing and waning right upper quadrant pain, worse with eating. The pain became much more intense this evening. She's had some nausea but no vomiting. She has not had any diarrhea or lower abdominal pain. She has not had any urinary symptoms or hematuria. Eating worsens her pain, there are no alleviating factors to her symptoms. She has not had any fevers or chills. She states she has had similar symptoms in the past, when she was , and told that it might be her gallbladder, but she has not had any further follow-up for several years. Review of Systems Review of Systems Constitutional: Denies fever or chills [] Eyes: Denies change in visual acuity, redness, or eye pain [] HENT: Denies nasal congestion or sore throat [] Respiratory: Denies cough or shortness of breath [] Cardiovascular: The patient denies any shortness of breath, chest pain, palpitations, or orthopnea [] GI: No additional information not addressed in HPI [] : Denies dysuria or hematuria [] Musculoskeletal: Denies back pain or joint pain [] Integument: Denies rash or skin lesions [] Neurologic: Denies headache, focal weakness or sensory changes [] Endocrine: Denies polyuria or polydipsia [] All other systems were reviewed and found to be within normal limits, except as documented in this note. Current Medications Current Medications Current Medications Medications (Trade) Dose Ordered Sig/Vernell Start Time Stop Time Status Last Admin Dose Admin Morphine Sulfate (Morphine Sulfate) 4 mg PRN Q15MIN PRN 07/15/18 22:15 07/16/18 22:14 07/15/18 22:27 4 MG Multi-Ingredient Mouthwash/Gargle (Gi Cocktail) 20 ml 1X ONCE 07/16/18 00:00 07/16/18 00:01 UNV Ondansetron HCl (Zofran) 4 mg 1X ONCE 07/15/18 22:30 07/15/18 22:31 DC 07/15/18 22:27 4 MG Sodium Chloride 1,000 ml @ 1,000 mls/hr Q1H 07/15/18 22:30 07/15/18 23:29 DC 07/15/18 22:27 1,000 MLS/HR Allergies Allergies Allergies Coded Allergies Type Severity Reaction Last Updated Verified Sulfa (Sulfonamide Antibiotics) Allergy Intermediate hives 04/21/18 Yes sulfamethoxazole Allergy Intermediate Hives 04/21/18 Yes trimethoprim Allergy Intermediate Hives 04/21/18 Yes gluten Adverse Reaction Intermediate Nausea 04/21/18 Yes Physical Exam Physical Exam PHYSICAL EXAM: CONSTITUTIONAL: Well developed, well nourished HEAD: normocephalic, atraumatic EENT: PERRL, EOMI. Conjunctivae normal color, sclerae non-icteric; moist mucous membranes. NECK: Supple, non-tender; no meningismus. LUNGS: Lungs CTA, breathing even and unlabored. Normal air movement. HEART: Regular rate and rhythm, no murmur CHEST: No deformity; non-tender ABDOMEN: The abdomen is soft, there is focal right upper quadrant tenderness to palpation, without rebound or guarding, the remainder of the abdomen is relatively soft and non-tender, no masses or bruits. Munoz sign is absent. EXTREM: Normal ROM; no deformity, no calf tenderness. Normal pulses palpable in all extremities. There is no pedal edema. SKIN: No rash; no diaphoresis NEURO: Alert; normal speech and cognition; CN's grossly intact; strength grossly intact without focal deficit. BACK: No CVA TTP. Current Patient Data Vital Signs Vital Signs Date Time Temp Pulse Resp B/P (MAP) Pulse Ox O2 Delivery O2 Flow Rate FiO2 07/15/18 22:04 98.2 78 18 140/98 (112) 99 Room Air 98.2 Lab Values Laboratory Tests Test 07/15/18 21:20 07/15/18 21:42 07/15/18 22:18 Urine Collection Type Unknown Urine Color Yellow Urine Clarity Clear Urine pH 6.0 Urine Specific [place] 1.020 Urine Protein Negative mg/dL (NEG-TRACE) Urine Glucose (UA) Negative mg/dL (NEG) Urine Ketones (Stick) Negative mg/dL (NEG) Urine Blood Negative (NEG) Urine Nitrite Negative (NEG) Urine Bilirubin Negative (NEG) Urine Urobilinogen Dipstick 0.2 mg/dL (0.2 mg/dL) Urine Leukocyte Esterase Trace (NEG) Urine RBC 0 /HPF (0-2) Urine WBC 1-4 /HPF (0-4) Urine Squamous Epithelial Cells Mod /LPF Urine Bacteria Many /HPF (0-FEW) Urine Mucus Mod /LPF POC Urine HCG, Qualitative Hcg negative (Negative) White Blood Count 8.1 x10^3/uL (4.0-11.0) Red Blood Count 4.81 x10^6/uL (3.50-5.40) Hemoglobin 13.2 g/dL (12.0-15.5) Hematocrit 39.4 % (36.0-47.0) Mean Corpuscular Volume 82 fL (79-100) Mean Corpuscular Hemoglobin 27 pg (25-35) Mean Corpuscular Hemoglobin Concent 33 g/dL (31-37) Red Cell Distribution Width 15.5 % (11.5-14.5) H Platelet Count 216 x10^3/uL (140-400) Neutrophils (%) (Auto) 53 % (31-73) Lymphocytes (%) (Auto) 39 % (24-48) Monocytes (%) (Auto) 6 % (0-9) Eosinophils (%) (Auto) 2 % (0-3) Basophils (%) (Auto) 1 % (0-3) Neutrophils # (Auto) 4.3 x10^3uL (1.8-7.7) Lymphocytes # (Auto) 3.1 x10^3/uL (1.0-4.8) Monocytes # (Auto) 0.5 x10^3/uL (0.0-1.1) Eosinophils # (Auto) 0.1 x10^3/uL (0.0-0.7) Basophils # (Auto) 0.1 x10^3/uL (0.0-0.2) Sodium Level 138 mmol/L (136-145) Potassium Level 4.6 mmol/L (3.5-5.1) Chloride Level 104 mmol/L (98-107) Carbon Dioxide Level 26 mmol/L (21-32) Anion Gap 8 (6-14) Blood Urea Nitrogen 10 mg/dL (7-20) Creatinine 1.1 mg/dL (0.6-1.0) H Estimated GFR (Cockcroft-Gault) 66.2 BUN/Creatinine Ratio 9 (6-20) Glucose Level 96 mg/dL (70-99) Calcium Level 9.2 mg/dL (8.5-10.1) Total Bilirubin 0.5 mg/dL (0.2-1.0) Aspartate Amino Transferase (AST) 21 U/L (15-37) Alanine Aminotransferase (ALT) 23 U/L (14-59) Alkaline Phosphatase 50 U/L (46-116) Troponin I Quantitative 0.037 ng/mL (0.000-0.055) Total Protein 7.7 g/dL (6.4-8.2) Albumin 3.5 g/dL (3.4-5.0) Albumin/Globulin Ratio 0.8 (1.0-1.7) L Lipase 204 U/L (73-393) Laboratory Tests 07/15/18 22:18 Laboratory Tests 07/15/18 22:18 EKG EKG []Normal sinus rhythm at a rate of 60 beats for minute, normal axis, normal intervals, nonspecific ST/T changes. Radiology/Procedures Radiology/Procedures [PROCEDURE: ABDOMEN LTD Right upper quadrant abdominal ultrasound History: intermittent ruq pain x 2 weeks, increases post prandial Comparison: None. Technique: Transabdominal ultrasound images are obtained. Findings: Visualized pancreas is unremarkable. Liver is normal in echogenicity. Right hepatic lobe measures 17.8 cm, normal. Portal flow is hepatopedal. Sonographic Munoz sign is negative. No gallbladder wall thickening. No cholelithiasis. Common bile duct caliber is normal measuring 3 mm in diameter. The right kidney measures 11 cm in length and is without evidence of obstruction or stone. IVC is unremarkable. IMPRESSION: Unremarkable right upper quadrant ultrasound. ] Course & Med Decision Making Course & Med Decision Making Pertinent Labs and Imaging studies reviewed. (See chart for details) [12:00 AM: The patient's condition remains stable. Her right-sided pain has improved, she is now having some left upper abdominal discomfort. Her abdomen has been reexamined and has mild diffuse tenderness without focal tenderness. Munoz sign is absent. I discussed the possibility of doing a CT scan with the patient, but I feel that the yield is low and the patient declined after a risk/ benefit discussion. She does take Prilosec every day, she has had a prior appendectomy. I do suspect that she might have some peptic ulcer disease as the cause of her pain. I will give her a GI cocktail and a stress importance of close follow-up with GI for further evaluation.] Dragon Disclaimer Dragon Disclaimer This electronic medical record was generated, in whole or in part, using a voice recognition dictation system. Departure Departure Impression: Primary Impression: Abdominal pain Disposition: HOME, SELF-CARE Condition: STABLE Referrals: CHAD GARCIA MD Patient Instructions: Abdominal Pain, Gastritis, Adult CHERYL FOSTER MD Jul 15, 2018 22:15
[2018-07-15 22:16] LABS: BILIRUBIN,URINE NEGATIVE (NEG); CLARITY,URINE CLEAR; COLOR,URINE YELLOW; NITRITE,URINE NEGATIVE (NEG); PROTEIN,URINE NEGATIVE (NEG-TRACE); UROBILINOGEN,URINE 0.2 mg/dL (0.2 mg/dL)
[2018-07-15 22:21] LABS: BACTERIA,URINE MANY /HPF (0-FEW); SQUAMOUS EPITHELIAL CELL,UR MOD /LPF
[2018-07-15 22:22] LABS: RBC,URINE 0 /HPF (0-2)
[2018-07-15 22:26] LABS: BASO # 0.1 x10^3/uL (0.0-0.2); BASO % 1 % (0-3); EOS # 0.1 x10^3/uL (0.0-0.7); EOS % 2 % (0-3); HEMATOCRIT 39.4 % (36.0-47.0); HEMOGLOBIN 13.2 g/dL (12.0-15.5); LYMPH # 3.1 x10^3/uL (1.0-4.8); LYMPH % 39 % (24-48); MEAN CORPUSCULAR HEMOGLOBIN 27 pg (25-35); MEAN CORPUSCULAR HGB CONC 33 g/dL (31-37); MEAN CORPUSCULAR VOLUME 82 fL (79-100); MONO # 0.5 x10^3/uL (0.0-1.1); MONO % 6 % (0-9); NEUT # 4.3 x10^3uL (1.8-7.7); NEUT % 53 % (31-73); PLATELET COUNT 216 x10^3/uL (140-400); RED BLOOD COUNT 4.81 x10^6/uL (3.50-5.40); RED CELL DISTRIBUTION WIDTH 15.5 % (11.5-14.5); WHITE BLOOD COUNT 8.1 x10^3/uL (4.0-11.0)
[2018-07-15] MEDS ORDERED: IV NORMAL SALINE 1000ML BAG 1,000 ML IV SCH (22:30)
[2018-07-15] MEDS ORDERED: ONDANSETRON PF 4 MG/2 ML VIAL. IV ONE (22:30)
[2018-07-15 22:38] LABS: CALCIUM 9.2 mg/dL (8.5-10.1); CREATININE 1.1 mg/dL (0.6-1.0); GFR 66.2; POTASSIUM 4.6 mmol/L (3.5-5.1)
[2018-07-15 22:43] LABS: ALBUMIN 3.5 g/dL (3.4-5.0); ALBUMIN/GLOBULIN RATIO 0.8 (1.0-1.7); TOTAL BILIRUBIN 0.5 mg/dL (0.2-1.0); TOTAL PROTEIN 7.7 g/dL (6.4-8.2)
[2018-07-15 23:30] VITALS: BP 124/84
--- NOTE | 2018-07-15 23:40 | RAD ---
Right upper quadrant abdominal ultrasound History: intermittent ruq pain x 2 weeks, increases post prandial Comparison: None. Technique: Transabdominal ultrasound images are obtained. Findings: Visualized pancreas is unremarkable. Liver is normal in echogenicity. Right hepatic lobe measures 17.8 cm, normal. Portal flow is hepatopedal. Sonographic Munoz sign is negative. No gallbladder wall thickening. No cholelithiasis. Common bile duct caliber is normal measuring 3 mm in diameter. The right kidney measures 11 cm in length and is without evidence of obstruction or stone. IVC is unremarkable. IMPRESSION: Unremarkable right upper quadrant ultrasound. Electronically signed by: Benny Kenyon MD (07/15/2018 11:36 PM) [facility]
[2018-07-16] MEDS ORDERED: LIDO:MAALOX 1:1 20 ML SINGLE DOSE. SWSW ONE (00:30)
--- NOTE | 2018-07-16 05:05 | EKG ---
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
== END 2018-07-16 00:26 | disposition home or self-care (01) ==
LOC: ER 21:20
DX: R10.11 Right upper quadrant pain (principal); R11.0 Nausea; E78.00 Pure hypercholesterolemia, unspecified; I10 Essential (primary) hypertension; Z90.89 Acquired absence of other organs; Z98.51 Tubal ligation status; Z88.2 Allergy status to sulfonamides; Z88.1 Allergy status to other antibiotic agents; Z88.8 Allergy status to other drugs, medicaments and biological substances
CPT/HCPCS: 36415; 76705; 80053; 81001; 81025; 83690; 84484; 85025; 87086; 93005; 96374; 96375; 99284; J2270; J2405; J7030

== ENCOUNTER 2020-02-22 14:10 | Emergency (ER) | payer BC ==
[~2020-02-22] VITALS: Ht 160 cm; Wt 70.0 kg
[~2020-02-22 14:10] MED LIST changes: +OMEP40CA45 PO; -OMEP40CA5 PO
[2020-02-22 14:55] VITALS: BP 153/83
[2020-02-22] MEDS ORDERED: ORPHENADRINE CITRATE 60 MG/2 ML VIAL. IM ONE (15:45)
[2020-02-22] MEDS ORDERED: KETOROLAC 30 MG/ML VIAL. IM ONE (15:45)
--- NOTE | 2020-02-22 16:47 | PHYS DOC ---
Past Medical History Past Medical History: High Cholesterol, Hypertension Past Surgical History: Appendectomy, , Tubal ligation Additional Past Surgical Histo: cyst off ovary, abdominal plasty Smoking Status: Never Smoker Alcohol Use: None Drug Use: None General Adult EDM: Chief Complaint: LOWER BACK PAIN OR INJURY HPI: HPI: Patient is a 44 year old AA female who presents to the emergency department wit h complaints of low back pain that radiates into her left buttock and down her left thigh since February [id number]. Patient reports that she was lifting a heavy item when she felt a pop in her low back and she has had pain ever since then. She was seen by her primary care provider who prescribed her some steroids, hydrocodone, and ibuprofen. She states that the steroids helped initially but 2 days after she finished the 8-day taper she began to have the pain again. She denies any dysuria, hematuria, increased urinary frequency, fever, abdominal pain, loss of bowel or bladder control, or saddle anesthesia. She currently rates her pain a 10 out of 10 on the pain scale, she denies any alleviating factors, the pain is worse with movement. Review of Systems: Review of Systems: Constitutional: Denies fever or chills. [] Respiratory: Denies cough or shortness of breath. [] Cardiovascular: Denies chest pain or edema. [] GI: Denies abdominal pain, nausea, vomiting, or diarrhea. [] : Denies dysuria., Hematuria, increased urinary frequency [] Musculoskeletal: See HPI Integument: Denies rash. [] Neurologic: Denies headache, Psychiatric: Denies depression or anxiety. [] Heart Score: Risk Factors: Risk Factors: DM, Current or recent (<one month) smoker, HTN, HLP, family history of CAD, obesity. Risk Scores: Score 0 - 3: 2.5% MACE over next 6 weeks - Discharge Home Score 4 - 6: 20.3% MACE over next 6 weeks - Admit for Clinical Observation Score 7 - 10: 72.7% MACE over next 6 weeks - Early Invasive Strategies Current Medications: Current Medications Medications (Trade) Dose Ordered Sig/Vernell Start Time Stop Time Status Last Admin Dose Admin Ketorolac Tromethamine (Toradol 30mg Vial) 30 mg 1X ONCE 02/22/20 15:45 02/22/20 15:47 DC Orphenadrine Citrate (Norflex) 60 mg 1X ONCE 02/22/20 15:45 02/22/20 15:47 DC Allergies: Allergies: Allergies Coded Allergies Type Severity Reaction Last Updated Verified Sulfa (Sulfonamide Antibiotics) Allergy Intermediate hives 04/21/18 Yes sulfamethoxazole Allergy Intermediate Hives 04/21/18 Yes trimethoprim Allergy Intermediate Hives 04/21/18 Yes gluten Adverse Reaction Intermediate Nausea 04/21/18 Yes Physical Exam: PE: Constitutional: Well developed, well nourished, no acute distress, non-toxic appearance. [] HENT: Normocephalic, atraumatic, bilateral external ears normal, nose normal. [] Eyes: PERRLA, EOMI, conjunctiva normal, no discharge. [] Neck: Normal range of motion, no stridor. [] Cardiovascular:Heart rate regular rhythm Lungs & Thorax: Respirations even and unlabored, no retractions, no respiratory distress Skin: Warm, dry, no erythema, no rash. [] Back: No bony or paraspinal tenderness tenderness to palpation, no CVA tenderness, increased pain with left straight leg lift [] Extremities: No cyanosis, ROM intact, no edema. [] Neurologic: Alert and oriented X 3, normal motor function, normal sensory funct ion, no focal deficits noted. [] Psychologic: Affect normal, judgement normal, mood normal. [] Current Patient Data: Labs: Laboratory Tests Test 02/22/20 16:24 POC Urine HCG, Qualitative Hcg negative (Negative) Vital Signs: Vital Signs Date Time Temp Pulse Resp B/P (MAP) Pulse Ox O2 Delivery O2 Flow Rate FiO2 02/22/20 14:55 98.3 98 153/83 (106) 100 98.3 EKG: EKG: [] Radiology/Procedures: Radiology/Procedures: [] Course & Med Decision Making: Course & Med Decision Making Pertinent Labs and Imaging studies reviewed. (See chart for details) 44-year-old female who presents to the emergency department with complaints of low back pain since 01 February. Patient states that she is here for an MRI. I advised the patient that MRIs are not done in the emergency department for back pain and less their symptoms of an acute stroke or cauda equina syndrome. I advised the patient that I cannot do a CT of her back and offered to give patient IM injections for pain. 1623- RN notified this provider that patient was no longer in the room, pt eloped from the ER. [] Dragon Disclaimer: Dragon Disclaimer: This electronic medical record was generated, in whole or in part, using a voice recognition dictation system. 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
[2020-02-22 18:24] LABS: BILIRUBIN,URINE NEGATIVE (NEG); CLARITY,URINE CLEAR; COLOR,URINE YELLOW; NITRITE,URINE NEGATIVE (NEG); PROTEIN,URINE NEGATIVE (NEG-TRACE)
[2020-02-22 19:17] LABS: BACTERIA,URINE MANY /HPF (0-FEW); SQUAMOUS EPITHELIAL CELL,UR MANY /LPF
[2020-02-22 19:18] LABS: RBC,URINE RARE /HPF (0-2); WBC,URINE OCC /HPF (0-4)
== END 2020-02-22 16:23 | disposition left against medical advice (07) ==
LOC: ER 14:10
DX: M54.5 Low back pain (principal); M79.652 Pain in left thigh; R35.0 Frequency of micturition; R50.9 Fever, unspecified; R10.9 Unspecified abdominal pain; I10 Essential (primary) hypertension; E78.00 Pure hypercholesterolemia, unspecified; Z90.89 Acquired absence of other organs; Z98.51 Tubal ligation status; Z88.1 Allergy status to other antibiotic agents; Z88.2 Allergy status to sulfonamides; Z88.8 Allergy status to other drugs, medicaments and biological substances
CPT/HCPCS: 81001; 81025; 87086; 99283